=== PATIENT | male | born 1960 | race Caucasian/White ===

== ENCOUNTER → 2018-05-29 10:09 | Outpatient (CLI) | payer OTHER, SELFPAY ==
[2018-05-29 12:44] LABS: Anion Gap 7 (5-15); BUN 16 mg/dL (7-18); BUN/Creat Ratio 14.5 RATIO (10-20); Calcium,Total 8.9 mg/dL (8.5-10.1); Chloride 107 mmol/L (98-107); Cholesterol 193 mg/dL (200); EST Glomerular Filtration Rate 73 mL/min (>60); Est Glom Filt Rate - Afr Amer 89 mL/min (>60); Glucose 90 mg/dL (74-106); High Density Lipoprotein 35 mg/dL; Potassium 4.4 mmol/L (3.5-5.1); Sodium Level 140 mmol/L (136-145); Triglycerides 154 mg/dL; Very Low Density Lipoprotein 31 mg/dL (5-40)
--- OUTSIDE RECORDS SUMMARY | 2018-07-22 15:03 | XMS RPT_ITS ---
:1960 Author Organization [facility] Care Team Providers Name Role Phone Juan Doyle Attending Unavailable Juan Doyle Primary Care Unavailable PROBLEMS PROBLEMS No Problem Records FoundPROCEDURES PROCEDURES No Procedure Records FoundRESULTS RESULTS BASIC METABOLIC Collected: 05/29/2018 Status: F Source: [place] PROFILE (BMP) 10:11 AM [facility] REPOSITORY TYPE CODE TESTS RESULT OUT OF RANGE REFERENCE UNITS LAB L501.0100 74-106 mg/dL Normal GLU 90 Result Comment: Please note revised GLUCOSE reference range effective 2017. LAB L501.1000 7-18 mg/dL Normal BUN 16 LAB L501.1100 0.70-1.30 mg/dL Normal CREAT,SERUM 1.10 Result Comment: The validity of the calculated GFR AND GFRAA in patients over 70 years has not been determined. Clinical correlation is essential. LAB L501.1110 >60 mL/min Normal EST GFR 73 Result Comment: Non- GFR Calc LAB L501.1115 >60 mL/min Normal EST GFR - AA 89 Result Comment: GFR Calc LAB L501.1300 10-20 RATIO Normal BUN/CRE 14.5 LAB L501.2200 8.5-10.1 mg/dL CA Normal 8.9 LAB L501.5300 136-145 mmol/L NA Normal 140 LAB L501.5600 3.5-5.1 mmol/L K Normal 4.4 LAB L501.5900 98-107 mmol/L CL Normal 107 LAB L501.6100 21.0-32.0 mmol/L Normal CO2 26.0 LAB L501.6200 5-15 Normal GAP 7 Performed By: #### L500.2500, L500.4100 #### [facility] [address] [place], [address] LIPID PROFILE Collected: 05/29/2018 Status: F Source: [place] 10:11 AM [facility] REPOSITORY TYPE CODE TESTS RESULT OUT OF RANGE REFERENCE UNITS LAB L501.4900 200 mg/dL Normal CHOL 193 Result Comment: <200 mg/dL Desirable 200-240 mg/dL Borderline >240 mg/dL High Risk LAB L501.5000 mg/dL Normal TRIG 154 Result Comment: The drugs N-Acetylcysteine and Metamizole may falsely depress this assay. Serum Triglycerides Reference Interval Normal <150 mg/dL Borderline high 150 - 199 mg/dL High 200 - 499 mg/dL Very High > or = 500 mg/dL LAB L501.6400 mg/dL Low HDL 35 Result Comment: The drugs N-Acetylcysteine and Metamizole may falsely depress this assay. Reference Range HDL <40 mg/dL Low HDL Cholesterol HDL >or= 60 mg/dL High HDL Cholesterol LAB L501.6500 0-130 mg/dL Normal LDL 127 LAB L501.6600 5-40 mg/dL Normal VLDL 31 Performed By: #### L500.2500, L500.4100 #### [facility] [address] [place], [address] ALLERGIES ALLERGIES No Allergies Records FoundENCOUNTERS ENCOUNTERS ADMIT/DISCHARGE ACCOUNT ADMITTING ENCOUNTER LOCATION SOURCE NUMBER CLASS 05/29/2018 [id number] Ambulatory [facility] 1 [facility] ing:MFPLAB Repository PAYERS PAYERS ENCOUNTER GUARANTOR PAYER SUBSCRIBER SOURCE 05/29/2018 Jason Michele Primary Jason Andrew [id number] Insurance:[facility] ChapmanDOB: [facility] [id number] Number: Repository [id number]: [phone] [phone] () Date:[id number], [place] [address]QZ: 05/29/2018 [facility]LF [facility]Y [facility] Number: Effective Repository Date:2018-05-29
== END ==
PROVIDERS: Family Provider Family Medicine; PCP Family Medicine; Visit Provider Family Medicine
DX: E78.00 Pure hypercholesterolemia, unspecified (principal); N20.9 Urinary calculus, unspecified
CPT/HCPCS: 36415; 80048; 80061

== ENCOUNTER 2018-08-30 23:43 | Emergency (ER) | payer OTHER, SELFPAY ==
[2018-08-30 23:44] VITALS: BP 144/74; PULSE 78; RESP 18; TEMP 36.8; O2SAT 100; BMI 24.3
--- NOTE | 2018-08-31 00:04 | ED.DCSUM_ITS ---
- ER Visit Summary Date of Service: 08/31/18 Chief Complaint: [] Kidney stone pain History of Present Illness: The patient is a 58 M thinks he had another kidney stone that started an hour ago suddenly he developed some sharp and dull pain in his right flank associated with nausea. Current severity is resolved. It was pretty significant when it came on. He has had multiple kidney stones in the past. He is always passed them all. He does not have a urologist. Not noticed any blood in his urine. No other symptoms. Physical Examination: [] Vital signs reviewed General: Well-nourished well-developed Head: Normocephalic atraumatic Eyes: Pupils equal round and reactive to light extraocular movements intact ENT: TMs clear no hemotympanum no trauma Neck: Nontender full range of motion Cardiovascular: Regular rate rhythm no murmurs normal S1-S2 Respiratory: No distress clear to auscultation bilaterally chest nontender Abdomen: Soft nontender nondistended normal bowel sounds no masses Back: Nontender no CVA tenderness Extremities: Nontender active range of motion ?4 extremities no trauma Skin: Normal color no trauma Neuro alert oriented cranial nerves II through XII intact normal strength sensation reflexes Test Results: [] Emergency Department Course and Treatment: [] Monitored for almost an hour. Pain never returned. At this time I think he passed this kidney stone. We will follow-up as an outpatient Treatment Plan: [] Disposition: [] Impression: [] Right-sided kidney stone This note was generated with [employer]raphene[employer] dictation software. It may contain incorrect words, spelling, and punctuation that were not noted in review of the chart prior to signing ED Disposition - Plan for ED Patient: Referrals: Juan Doyle MD [Primary Care Provider] -
--- NOTE | 2018-08-31 00:44 | ED.DEP ---
ED Disposition - Plan for ED Patient: Disposition: Home or Assisted Living Instructions: ED Stone Renal Passed Referrals: Juan Doyle MD [Primary Care Provider] - Al Nunez MD [STAFF PHYSICIAN] -
[2018-08-31 00:54] VITALS: BP 136/70; PULSE 75; RESP 16; O2SAT 96
== END 2018-08-31 00:54 | disposition home or self-care (01) ==
PROVIDERS: Emergency Provider Emergency Medicine; Family Provider Family Medicine; PCP Family Medicine
DX: N20.0 Calculus of kidney (principal); Z87.442 Personal history of urinary calculi
CPT/HCPCS: 99282

== ENCOUNTER → 2019-05-31 10:20 | Outpatient (CLI) | payer OTHER, SELFPAY ==
[2019-05-31 12:44] LABS: PSA,Total - Annual Screen 0.76 ng/mL (0.00-4.00)
== END ==
PROVIDERS: Family Provider Family Medicine; PCP Family Medicine; Referring Provider Family Medicine; Visit Provider Family Medicine
DX: N40.0 Benign prostatic hyperplasia without lower urinary tract symptoms (principal)
CPT/HCPCS: 36415; 84153; G0103

== ENCOUNTER → 2020-06-05 09:29 | Outpatient (CLI) | payer OTHER, SELFPAY ==
[2020-06-05 11:27] LABS: Anion Gap 4 (5-15); BUN 18 mg/dL (7-18); BUN/Creat Ratio 17.8 RATIO (10-20); Calcium,Total 8.9 mg/dL (8.5-10.1); Chloride 106 mmol/L (98-107); Cholesterol 172 mg/dL (200); Creatinine, Serum 1.01 mg/dL (0.70-1.30); EST Glomerular Filtration Rate 80 mL/min (>60); Est Glom Filt Rate - Afr Amer 97 mL/min (>60); Glucose 81 mg/dL (74-106); High Density Lipoprotein 32 mg/dL; PSA,Total - Annual Screen 1.29 ng/mL (0.00-4.00); Potassium 3.9 mmol/L (3.5-5.1); Sodium Level 140 mmol/L (136-145); Triglycerides 199 mg/dL; Very Low Density Lipoprotein 40 mg/dL (5-40)
== END ==
PROVIDERS: PCP Family Medicine; Referring Provider Family Medicine; Visit Provider Family Medicine
DX: Z13.220 Encounter for screening for lipoid disorders (principal); Z13.1 Encounter for screening for diabetes mellitus; N40.0 Benign prostatic hyperplasia without lower urinary tract symptoms
CPT/HCPCS: 36415; 80048; 80061; 84153; G0103

== ENCOUNTER → 2021-06-08 09:36 | Outpatient (CLI) | payer OTHER, SELFPAY ==
[2021-06-08 13:00] LABS: ALB/GLOB Ratio 1.2 RATIO (0.9-2.4); AST(SGOT) 36 U/L (15-37); Alanine Aminotransfer ALT/SGPT 54 U/L (16-61); Albumin, Serum 4.2 g/dL (3.2-5.0); Alkaline Phosphatase 84 U/L (45-117); Anion Gap 5 (5-15); BUN 17 mg/dL (7-18); BUN/Creat Ratio 15.3 RATIO (10-20); Calcium,Total 9.4 mg/dL (8.5-10.1); Chloride 107 mmol/L (98-107); Cholesterol 164 mg/dL (200); Creatinine, Serum 1.11 mg/dL (0.70-1.30); EST Glomerular Filtration Rate 72 mL/min (>60); Est Glom Filt Rate - Afr Amer 87 mL/min (>60); Globulin 3.4 g/dL (2.2-4.2); Glucose 86 mg/dL (74-106); High Density Lipoprotein 35 mg/dL; PSA,Total - Annual Screen 0.78 ng/mL (0.00-4.00); Potassium 4.9 mmol/L (3.5-5.1); Protein, Total 7.6 g/dL (6.4-8.2); Sodium Level 139 mmol/L (136-145); Triglycerides 130 mg/dL; Very Low Density Lipoprotein 26 mg/dL (5-40)
== END ==
PROVIDERS: PCP Family Medicine; Visit Provider Family Medicine
DX: E78.00 Pure hypercholesterolemia, unspecified (principal); N40.0 Benign prostatic hyperplasia without lower urinary tract symptoms
CPT/HCPCS: 36415; 80053; 80061; 84153; G0103

== ENCOUNTER 2021-11-19 07:52 | Day surgery (SDC) | payer OTHER, SELFPAY ==
[2021-11-19] VITALS (7 sets, daily range): BP systolic 119–153; BP diastolic 66–89; PULSE 46–72; RESP 15–18; TEMP 36.5–36.6; O2SAT 96–100; BMI 24.7
--- NOTE | 2021-11-19 08:04 | EKG12_ITS ---
Test Reason : PREOP Blood Pressure : / mmHG Vent. Rate : 068 BPM Atrial Rate : 068 BPM P-R Int : 138 ms QRS Dur : 092 ms QT Int : 402 ms P-R-T Axes : 049 003 023 degrees QTc Int : 427 ms Normal sinus rhythm Normal ECG When compared with ECG of 08-MAY-2002 15:38, No significant change was found Confirmed by NATE POTTER, RUTHIE ([id number]), material expeditor LOIS ORTIZ ([id number]) on 11/25/2021 12:21:14 PM Referred By: Confirmed By:RUTHIE SULLIVAN MD
[2021-11-19] MEDS: Lactated Ringers 1,000 ML 15 ML IV (08:21)
--- NOTE | 2021-11-19 09:03 | HP.PCM_ITS ---
History and Physical Date of Admission: 11/19/21 Intake Vital Signs 11/06/21 09:53 Height 5 ft 7 in Weight: 162 lb BMI 25.3 BP 153/88 H Blood Pressure Location Rt brachial Position Sitting Respiration 18 Pulse 78 Pulse Source Monitor Temp 97.4 F L Temp Source Temporal Pulse Oximetry (%) 99 Oxygen Delivery Method room air Intake Visit Reasons: Hernia Chief Complaint: Possible Hernia Accompanied by: Is patient in pain?: No Allergies No Known Allergies Allergy (Verified 11/06/21 09:54) Medications Tamsulosin Hcl 0.4 mg PO DAILY 08/31/18 [History Confirmed 11/06/21] finasteride 5 mg PO DAILY 08/31/18 [History Confirmed 11/06/21] cholecalciferol (vitamin D3) 125 mcg (5,000 unit) capsule 125 mcg PO DAILY 11/06 [History Confirmed 11/06/21] lactobacillus combination no.9 4 billion cell capsule 4,000 mmu cells PO DAILY 11/06/21 [History Confirmed 11/06/21] jdvcdnjo-[id number] 120 mcg-lutein 150 mcg-herb 50 mg chewable tablet tab PO 11/06/21 [History Confirmed 11/06/21] zinc gluconate 30 mg tablet 15 mg PO DAILY tab 11/06/21 [History Confirmed 11/06/21] PFSH Medical History (Updated 11/06/21 @ 09:49 by Cindi Ferrer) Right groin pain Surgical History (Updated 11/06/21 @ 09:50 by Cindi Ferrer) History of vasectomy History of wisdom tooth extraction Family History (Updated 11/06/21 @ 09:52 by Cindi Ferrer) Sister Asthma Breast cancer Mother Arthritis Hypertension Osteoporosis CVA (cerebral vascular accident) Father Cancer Throat cancer Heart disease CVA (cerebral vascular accident) Social History (Updated 11/06/21 @ 09:52 by Cindi Ferrer) Smoking Status: Never smoker alcohol intake: current substance use type: does not use HPI HPI HPI: YANDEL WINTERS, is a 61 M who presents to the office today for right groin pain. The patient reports that he started experiencing discomfort in the right groin back in May and then since then it has grown and become a bulge and is still uncomfortable. He is able to push the bulge back in. Occurs only in the right side and he is having no discomfort in the left. He describes no nausea vomiting or fevers or chills. ROS General General: No weight change, appetite, fatigue, colon cancer, breast cancer or weakness HEENT HEENT: No difficulty swallowing, eye injury, eye surgery, swollen glands or hoarseness Endo Endocrine: No thyroid disease, diabetes mellitus, thyroid cancer, Hair loss, heat intolerance or cold intolerance Skin Skin: No rash or changing moles Breast Breast: No left breast lump, right breast lump, nipple discharge, breast pain, abnormal mammogram, abnormal US or breast enlargement Musc Musculoskeletal: No back problems, arthritis, rheumatoid arthritis, gout or joint pain Cardio Cardiovascular: No murmur, pacemaker, heart disease, atrial fibrillation, high blood pressure, heart attack, heart stent, palpitations, shortness of breat with exertion or chest pain Psych Psychiatric: No depression, anxiety or hearing voices Resp Respiratory: No shortness of breath, No sleep apnea, No cough, No COPD, No asthma, No emphysema and No wheezing Gastro Gastrointestinal: Yes abdominal pain, No nausea or vomiting, No diarrhea, No constipation, No blood in stool, No acid reflux, No hemorrhoids, No ulcers, No gallbladder problem and No black,tarry stools Chetan Hematologic: No blood thinners, No blood disorders, No bleeding, No anemia and No blood clots Neuro Neurologic: No system reviewed and no additional complaints, except as documented, No as per HPI, No abnormal gait, No abnormal hearing, No abnormal m ovements, No abnormal speech, No behavioral changes, No burning sensations, No confusion, No convulsions, No disequilibrium, No dizziness, No localized weakness, No frequent falls, No headache(s), No lack of coordination, No loss of vision, No memory loss, No numbness, No other visual disturbances, No radicular pain, No restless legs, No sensory deficit, No syncope, No tingling, No tremor(s), No weakness and No other Exam Const General: cooperative Orientation: alert and oriented x3 HENMT Head: normal to inspection Neck Neck: normal visual inspection and full ROM Chest Chest palpation & inspection: normal inspection of the chest Resp Effort & Inspection: normal respiratory effort Auscultation: clear to auscultation bilaterally Cardio Rate: regular rate Rhythm: regular rhythm GI Inspection: non-distended Palpation: soft, hernia indirect inguinal on the right and nontender Skin General: no rashes or lesions noted Neuro General: patient alert and patient oriented x3 Extrem General: full ROM Psych Appearance: grossly normal Mental Status: mental status grossly normal Assessment and Plan Assessment and Plan (1) Hernia: Plan - Dr. Gee Bullock MD: Patient has a right inguinal hernia which is reducible. I discussed robotic assisted laparoscopic right inguinal hernia repair with mesh. I discussed the risks including wound to bleeding, infection, injury to bowel or bladder or blood supply to the testicle. Patient understands the risks and is willing to proceed. I discussed mesh placement in detail as well as postoperative care and restrictions. I also discussed contralateral repair if a hernia is starting on the left and he would like me to repair it if it is present. Gee Bullock MD Pager: [facility] [address] [place] [address], [address] [place] [address] Office: I have re-examined the patient. There are no clinical changes since date of exam.
[2021-11-19] MEDS: Cefazolin 2 GM in 0.9% Normal Saline 100 ML IV (09:17)
--- NOTE | 2021-11-19 10:24 | PCM.OPRPT ---
Problems Associated Problem List Diagnoses (1) Right inguinal hernia: Report of Operation Date of Procedure: 11/19/21 Pre-Operative Diagnosis: Right inguinal hernia Post-Operative Diagnosis: Right inguinal hernia Surgery/Procedure Performed:: Robotic assisted laparoscopic right inguinal hernia repair with mesh Description of Procedure: Patient was brought back to the operating room and general anesthesia was induced. The abdomen was prepped and draped in usual sterile fashion. A midline incision was made superior the umbilicus and the fascia was elevated and a Veress needle was placed into the abdomen and a drop test was performed. Next the abdomen was insufflated to 15 mmHg and the Veress needle was removed. A camera port was placed. The camera was placed and the abdomen was inspected and there were no injuries from entry. Under direct visualization a port was placed in the right lateral abdomen and left lateral abdomen. Next the patient was placed in Trendelenburg and the robot was docked. In the right inguinal region an incision was made in the peritoneum using electrocautery scissors and deepened down to the hernia sac. The hernia sac was dissected free and reduced. Next ProGrip mesh was unfolded in the right groin completely covering the hernia defect. The patient did have a small direct as well as an indirect defect. Next the peritoneum was reapproximated using a running 3-0V lock suture. There were 2 small holes in the peritoneum which were closed with 3-0 Vicryl's. At the end of the procedure the mesh completely was covered by peritoneum. Next the robot was undocked and the ports were removed. The abdomen was allowed to desufflate. The incisions were injected with local anesthetic and closed with interrupted 4-0 Monocryl suture and Steri-Strips and bandages. The scrotum was checked in the end of the case and contain both testicles. The patient was awoken taken to PACU in stable condition. Grafts/Implants Used: ProGrip mesh in the right inguinal region Admit VTE Documentation VTE Mechan Device Prophylaxis: SCD's
--- NOTE | 2021-11-19 10:27 | EX.PCM.DISCH ---
Discharge Instructions Procedure Hernia Diet Discharge Diet: Light diet - advance as tolerated Activity Discharge Activity: May Not Drive (for 2-3 days or while taking narcotic pain meds.) and May Shower (with the bandage in place 1-2 days after surgery.) Lifting Restrictions: 20 pounds for 4 weeks. Additional Activity Instructions:: Climbing stairs is fine, walking is encouraged. Sitting in bed may be uncomfortable. Sitting up using your lateral muscles (sitting up sideways) is usually more comfortable. Do not drive, work heavy equipment of sign legal documents for 24 hours. If your hernia repair was an inguinal repair, you may have scrotal swelling, an ice pack and/or athletic support can provide more comfort. Pain medications may cause nausea, you should typically eat light foods as you take your pain medications. Pain medications may also cause constipation. If you have difficulty with this, discuss with your doctor. Dressing / Incision Call your doctor if your incision/area has: Continuous Slow Oozing, Sudden Increased Bleeding, Increased Pain/ Swelling, Increased Redness and Foul Smelling Discharge Call your doctor if you observe: Fever of 101 or Higher Suture Line Care: Avoid Pulling/Pushing and Avoid Pinching/Bending Remove Dressing in: 2 days (Remove clear bandages in 2 days, remove Steri-Strips in 7 to 10 days.) Cleanse incision/area with: Soap & Water Follow Up Care Please Follow Up With: Gee Bullock MD When: Please call to schedule 2 week follow up appointment. [phone] Test Results: Test results from this visit will be discussed in further detail at your follow-up appointment, if applicable. Discharge Plan Admission Attending Provider: Gee Bullock Primary Care Provider: Judson Hayes Discharge Orders/Prescriptions Prescriptions: New oxycodone-acetaminophen [Percocet] 5-325 mg tablet 1 tab PO Q6H PRN (Reason: pain) 5 Days Qty: 10 RF: 0 No Action cholecalciferol (vitamin D3) 125 mcg (5,000 unit) capsule 125 mcg PO DAILY RF: 0 Alive Men's 50 Plus Multivit 120 mcg-150 mcg -50 mg tablet,chewable 1 tab PO DAILY RF: 0 zinc gluconate 30 mg tablet 15 mg PO DAILY RF: 0 Adult 50 Plus Probiotic 4 billion cell capsule 4,000 mmu cells PO DAILY RF: 0 finasteride 5 MG tablet 5 mg PO DAILY RF: 0 Tamsulosin Hcl 0.4 MG capsule 0.4 mg PO QHS RF: 0 Referrals / Follow Up: Judson Hayes MD [Primary Care Provider] - Disposition Disposition (needs filled in before D/C Order can be placed): Home, Self Care
[2021-11-19] MEDS: Bupivacaine Mpf 0.5% 30 ML VIAL (10:30)
[2021-11-19] MEDS: oxyCODONE 5 MG Tablet PO (11:46)
[2021-11-19] MEDS: Acetaminophen 325 MG Tablet PO (11:50)
== END 2021-11-19 12:20 | disposition home or self-care (01) ==
LOC: SDC 07:52 → AC 07:54
PROVIDERS: PCP Family Medicine; Visit Provider Surgery
PROC: (CPT 49650; principal; 2021-11-19 09:15)
DX: K40.90 Unilateral inguinal hernia, without obstruction or gangrene, not specified as recurrent (principal); N42.9 Disorder of prostate, unspecified; Z98.52 Vasectomy status
CPT/HCPCS: 49650; 00840; 93005; J7120; J2405

== ENCOUNTER → 2022-05-04 | Outpatient (CLI) | payer OTHER, SELFPAY ==
[2022-05-04 12:42] LABS: Anion Gap 7 (5-15); BUN 19 mg/dL (7-18); BUN/Creat Ratio 18.6 RATIO (10-20); Calcium,Total 9.2 mg/dL (8.5-10.1); Chloride 106 mmol/L (98-107); Cholesterol 181 mg/dL (200); Creatinine, Serum 1.02 mg/dL (0.70-1.30); EST Glomerular Filtration Rate 79 mL/min (>60); Est Glom Filt Rate - Afr Amer 95 mL/min (>60); Glucose 86 mg/dL (74-106); High Density Lipoprotein 38 mg/dL; PSA,Total - Annual Screen 0.88 ng/mL (0.00-4.00); Potassium 4.5 mmol/L (3.5-5.1); Sodium Level 139 mmol/L (136-145); Triglycerides 154 mg/dL; Very Low Density Lipoprotein 31 mg/dL (5-40)
== END | disposition home or self-care (01) ==
LOC: MFPLAB 09:35
PROVIDERS: PCP Family Medicine; Referring Provider Family Medicine; Visit Provider Family Medicine
DX: N40.0 Benign prostatic hyperplasia without lower urinary tract symptoms (principal); E78.00 Pure hypercholesterolemia, unspecified; Z13.1 Encounter for screening for diabetes mellitus
CPT/HCPCS: 36415; 80048; 80061; 84153; G0103

== ENCOUNTER → 2023-04-11 | Outpatient (CLI) | payer OTHER, SELFPAY ==
[2023-04-11 12:19] LABS: Absolute Lymphocyte Count 1.03 X10^3/uL (0.83-4.51); Absolute Neutrophil Count 2.5 X10^3/uL (2.0-7.7); Basophil# 0.02 X10^3/uL; Basophil% 0.5 % (0-1); Eosinophil# 0.09 X10^3/uL; Eosinophils% 2.2 % (0-5); Hematocrit 51.6 % (40-54); Hemoglobin 16.8 g/dL (13.0-16.5); Lymphocyte # 1.03 X10^3/ul (0.83-4.51); Lymphocyte % 24.7 % (19-41); Mean Corp Hgb Conc 32.6 g/dL (32-36); Mean Corpuscular Hgb 30.4 pg (27.0-32.0); Mean Corpuscular Volume 93.3 fL (80-94); Mean Platelet Vol. 9.2 fl (6.2-12.0); Monocyte# 0.49 X10^3/uL; Monocyte% 11.8 % (0-10); NRBC Flagged by Analyzer 0 % (0-5); Neutrophil # 2.53 X10^3/uL (2.7-7.7); Neutrophil % 60.6 % (47-70); Platelet Count 297 K/mm3 (150-450); Red Blood Count 5.53 M/mm3 (4.6-6.2); White Blood Count 4.2 K/mm3 (4.4-11.0)
[2023-04-11 13:01] LABS: ALB/GLOB Ratio 1.1 RATIO (0.9-2.4); AST(SGOT) 23 U/L (15-37); Alanine Aminotransfer ALT/SGPT 36 U/L (16-61); Albumin, Serum 3.9 g/dL (3.2-5.0); Alkaline Phosphatase 76 U/L (45-117); Anion Gap 5 (5-15); BUN 16 mg/dL (7-18); Chloride 106 mmol/L (98-107); Cholesterol 158 mg/dL (200); Creatinine, Serum 1.07 mg/dL (0.70-1.30); EST Glomerular Filtration Rate 74 mL/min (>60); Est Glom Filt Rate - Afr Amer 90 mL/min (>60); Globulin 3.6 g/dL (2.2-4.2); Glucose 88 mg/dL (74-106); High Density Lipoprotein 30 mg/dL; PSA,Total - Annual Screen 0.93 ng/mL (0.00-4.00); Potassium 4.7 mmol/L (3.5-5.1); Protein, Total 7.5 g/dL (6.4-8.2); Sodium Level 139 mmol/L (136-145); T4 Free Direct 1.06 ng/dL (0.76-1.46); Thyroid Stim Hormone (TSH) 1.84 uIU/mL (0.358-3.74); Triglycerides 232 mg/dL; Very Low Density Lipoprotein 46 mg/dL (5-40)
== END | disposition home or self-care (01) ==
LOC: BFHLAB 10:05
PROVIDERS: PCP Family Medicine; Referring Provider Family Medicine; Visit Provider Family Medicine
DX: Z00.00 Encounter for general adult medical examination without abnormal findings (principal); Z12.5 Encounter for screening for malignant neoplasm of prostate; R63.4 Abnormal weight loss
CPT/HCPCS: 36415; 80053; 80061; 84153; 84439; 84443; 85025; G0103

== ENCOUNTER → 2023-04-29 | Outpatient (CLI) | payer OTHER, SELFPAY ==
--- NOTE | 2023-04-29 09:59 | MRI_ITS ---
STUDY: MRI ARTHROGRAM OF THE RIGHT SHOULDER REASON FOR EXAM: Male, 63 years old. Right shoulder pain. TECHNIQUE: 10 cc of dilute Clariscan contrast was injected into the right glenohumeral joint. MRI was obtained in all 3 orthogonal planes. In addition, a fat-suppressed T1-weighted was performed with the patient''s arm in the abduction external rotation (ABER) position. COMPARISON: Right shoulder radiographs dated 04/29/2023. FINDINGS: There is mild supraspinatus tendinosis without a full-thickness tear. Normal infraspinatus tendon. Normal subscapularis tendon. Normal teres minor tendon. Normal supraspinatus muscle. Normal infraspinatus muscle. Normal subscapularis muscle. Normal teres minor muscle. Normal glenohumeral articulation. Normal humeral head and visualized proximal humerus. Normal biceps labral complex. Normal intracapsular long biceps tendon. Normal rotator interval. There is linear signal in the superior glenoid labrum, oriented in the superolateral direction, extending posterior to the biceps-labral anchor (coronal T1 series 3 image 10), compatible with a small SLAP tear. There is hypertrophic acromioclavicular arthrosis, with inferior osteophyte formation, with minimal effacement of the supraspinatus myotendinous junction. There is a Type II morphology (curved), with a neutral orientation. There is a small amount of subacromial-subdeltoid bursal fluid. Normal visualized coracohumeral and coracoacromial ligaments. Normal quadrilateral space. Normal axillary space. Normal deltoid muscle. Normal trapezius muscle. MRI/Upper Ext Jt W/Contrast IMPRESSION: Mild supraspinatus tendinosis without a full-thickness rotator cuff tear. Small SLAP tear of the superior labrum. Hypertrophic acromioclavicular arthrosis, with inferior osteophyte formation, with minimal effacement of the supraspinatus myotendinous junction. Mild subacromial-subdeltoid bursitis. Electronically Signed: Benny Mckenna MD at 14:42 EDT ,
--- NOTE | 2023-04-29 10:00 | RAD_ITS ---
STUDY: X-RAY - RIGHT SHOULDER REASON FOR EXAM: Male, 63 years old. Post right shoulder arthrogram TECHNIQUE: 3 view(s) of the shoulder. COMPARISON: None. FINDINGS: Status post right intra-articular contrast injection for MRI. Normal glenohumeral articulation. Normal acromioclavicular joint. Normal acromion. Normal humeral head and visualized proximal humerus. The soft tissue structures are unremarkable. Normal visualized pulmonary apex. RAD/Shoulder min 2 Views IMPRESSION: Normal x-ray examination of the shoulder. Electronically Signed: Jeff Ibarra MD at 15:10 EDT ,
[2023-04-29] MEDS: Lidocaine 2% (5ml sdv) 5 ML VIAL.MPF INFILT (10:38)
--- NOTE | 2023-04-29 11:13 | PCM.OP.PRO ---
Procedure Report Date of Procedure: 04/29/23 Assessment & Plan Assessment/Plan (1) Right shoulder pain: QUALIFIERS: Chronicity: unspecified Qualified Code(s): M25.511 - Pain in right shoulder PLAN: PROCEDURE: Arthrogram-right shoulder ORDERING PROVIDER: Dr. Oquendo INDICATION: Male, 63 years old. Right shoulder pain. PROVIDER: Valerie Robbins APRN-[facility] CONSENT: The procedure as well as the benefits and possible complications including bleeding and infection were explained to the patient. Informed consent was obtained. TECHNIQUE: The patient was in the supine position. The overlying skin was prepped and draped in the usual sterile fashion. Following local anesthetic using 2% lidocaine and under direct fluoroscopic guidance, a 22-gauge spinal needle was placed into the right shoulder. 2 cc of Isovue 300 was injected for confirmation. Following this, 10 cc of MRI contrast was injected. All elements of maximal sterile barrier technique followed. Patient tolerated procedure well. IMPRESSION: Successful fluoroscopic guided right shoulder arthrogram. Procedures Radiology Radiology Xray Procedures: [id number] Arthrogram Shoulder
--- NOTE | 2023-04-29 11:24 | RAD_ITS ---
STUDY: X-RAY - ORBITS REASON FOR EXAM: Male, 63 years old. MRI CLEARANCE TECHNIQUE: 2 view(s) of the orbits were obtained. COMPARISON: None. FINDINGS: Normal bilateral orbits without a metallic orbital foreign body. Normal visualized facial bones. Normal paranasal sinuses. The soft tissue structures are unremarkable. RAD/Orbits for Foreign Body IMPRESSION: No demonstrated metallic orbital foreign body. The patient is cleared for an MRI examination. Electronically Signed: Jeff Ibarra MD at 12:35 EDT ,
== END | disposition home or self-care (01) ==
LOC: RAD 09:52
PROVIDERS: PCP Family Medicine; Referring Provider Family Medicine; Visit Provider Family Medicine
DX: M25.511 Pain in right shoulder (principal)
CPT/HCPCS: 23350; 70030; 73030; 73222; 77002; Q9967

== ENCOUNTER 2024-03-14 09:44 | Day surgery (SDC) | payer OTHER, SELFPAY ==
[2024-03-14] VITALS (8 sets, daily range): BP systolic 116–134; BP diastolic 79–93; PULSE 53–72; RESP 16; TEMP 36.2–36.3; O2SAT 96–98; BMI 22.6
--- NOTE | 2024-03-14 10:08 | PCM.HP.STD ---
HPI - General General Date of Admission: 03/14/24 Date of Service: 03/14/24 Chief Complaint: Screening colonoscopy HPI Narrative YANDEL WINTERS, is a 64 M who presents today for screening colonoscopy. He had a colonoscopy likely 12 years ago. He is not having any problems at this time. He has past medical history of BPH takes tamsulosin and finasteride at night. He is not having chest pain or shortness of breath. Denies any nausea vomit diarrhea. Overall is in very good health. [facility] Medical History (Updated 03/12/24 @ 14:16 by Elieser Weems) Wears glasses Personal history of colonic polyps SLAP lesion of right shoulder Impingement of right shoulder Loss of hearing Alcohol use Prostate disease History of renal disease Back pain Injury of head and neck Heartburn Non-smoker Shortness of breath on exertion Leg cramps History of pain when walking Hx of fracture of finger Right groin pain Home Medications ?Medication ?Instructions ?Recorded ?Last Taken ?Type finasteride 5 mg tablet 5 mg PO QHS 08/31/18 Unknown History cholecalciferol (vitamin D3) 125 125 mcg PO DAILY 11/06/21 Unknown History mcg (5,000 unit) capsule [id number] 120 mcg-lutein 1 tab PO DAILY 11/06/21 Unknown History 150 mcg-herb 50 mg chewable tablet (Alive Men's 50 Plus Multivitamin) zinc gluconate 30 mg tablet 15 mg PO DAILY 11/06/21 Unknown History tamsulosin 0.4 mg capsule 0.4 mg PO QHS 03/12/24 Unknown History Allergy/AdvReac Type Severity Reaction Status Date / Time No Known Allergies Allergy Verified 03/14/24 10:02 Family History Sister Asthma Breast cancer Mother Arthritis Hypertension Osteoporosis CVA (cerebral vascular accident) Father Cancer Throat cancer Heart disease CVA (cerebral vascular accident) Surgical History (Updated 03/12/24 @ 14:16 by Elieser Weems) Hx of LASIK History of robot-assisted repair of right inguinal hernia Hx of colonoscopy History of excision of mass History of vasectomy History of wisdom tooth extraction Social History (Updated 02/15/24 @ 09:31 by Maribel Verduzco) household members: spouse current occupational status: employed current occupation: [employer] Smoking Status: Never smoker alcohol intake: current substance use type: does not use ROS Review of Systems ROS Unobtainable: other Constitutional Constitutional: Denies fatigue, fever(s), poor appetite, weight gain or weight loss ENT HEENT: Denies mouth lesions Cardiovascular Cardiovascular: Denies abdominal bloating, abdominal edema or abdominal pain Respiratory/Chest Respiratory/Chest: Denies change in mental status, change in phlegm color, chest congestion or chest tightness Gastrointestinal Gastrointestinal: Denies belching, bloating, change in bowel habits, change in stool character, chewing difficulty, coffee ground emesis, constipation, cramping, diarrhea, dyspepsia, dysphagia, early satiety, excessive flatus, fecal incontinence, heartburn, hematemesis, hematochezia, hemorrhoids, loose stools, melena, nausea, odynophagia, rectal bleeding, tenesmus, vomiting or weight changes Genitourinary Genitourinary: Denies abdominal discomfort, burning urination or itching Musculoskeletal Musculoskeletal: Reports as per HPI; Denies muscle weakness or myalgias Integumentary Integumentary: Denies jaundice Neurologic Neurologic: Denies lack of coordination or weakness Psychiatric Psychiatric: Denies confusion, depression, memory loss, mood swings, paranoia or suicidal ideation Endocrine Endocrinology: Denies systems reviewed and no addt'l complaints, except as documented Hematologic/Lymphatic Hematologic/Lymphatic: Denies anemia, easy bleeding, easy bruising or lymphadenopathy Allergic/Immunologic Allergic/Immunologic: Denies systems reviewed and no addt'l complaints, except as documented Vital Signs Vital Signs Vital Signs: 03/14/24 10:03 03/14/24 10:03 Temperature 97.2 F L Temperature Source Temporal Pulse Rate 72 Respiratory Rate 16 Respiratory Pattern Normal Blood Pressure 134/93 H Blood Pressure Mean 106 Blood Pressure Source Monitor Blood Pressure Position Semi-Fowlers Blood Pressure Location Left Arm Pulse Ox 98 Oxygen Delivery Method Room Air Weight Weight: 149 lb Body Mass Index (BMI) 22.6 Physical Exam Const alert General Appearance: cooperative Orientation / Consciousness: oriented to person HEENT hearing grossly normal bilaterally Head and Scalp: normal to inspection Face and Sinus: face symmetric Nose: external nose normal Mouth: oral and palatal mucosa normal Eyes conjunctivae normal General Eye: normal appearance of both eyes Neck full ROM General: normal visual inspection Lymph Lymphatic: no lymphadenopathy noted Chest inspection of chest normal and palpation of chest normal Chest: symmetrical chest wall rise Resp normal respiratory effort Effort and Inspection: able to speak in complete sentences Cardio regular rate GI non-distended Percussion: normal to percussion Rectal Exam: deferred Neuro Speech: speech normal Gait (Neuro): normal gait Assessment & Plan Assessment/Plan (1) Encounter for screening for malignant neoplasm of colon: PLAN: Plan He was explained alternatives, risk and benefits including not withstanding bleeding, infection, sepsis, perforation, need for emergent surgery and . He will have an ASA of 3.
[2024-03-14] MEDS: Lactated Ringers 1,000 ML 15 ML IV (10:11)
--- NOTE | 2024-03-14 10:43 | PCM.PRE.AN2 ---
ASA Classification* ASA Classification ASA Classification: 2 Assessment & Plan Anesthesia* Anesthesia Assessment Anesthesia Assessment: Discussed sedation and/or anesthesia options, risks, benefits, and alternatives with patient/parents/legal guardian/POA. Questions invited. The patient/parents/legal guardian/POA seems to understand and agrees to proceed with anesthesia plan. Reviewed the physical assessment, medical history, allergy history and patient home medications list prior to surgery/procedure/anesthetic and documented any changes. Performed airway and anesthesia risk assessments. Anesthesia Type Anesthesia Type: MAC Anesthesia Focused Assessment* Temperature: 97.2 F Pulse Rate: 72 Blood Pressure: 134/93 Respiratory Rate: 16 Pulse Ox: 98 Airway Assessment Mouth opens: >3 cm Mallampati Score: II Focused Labs Anesthesia Preop lab: CBC WBC 4.2 K/mm3 (4.4-11.0) L 04/11/23 10:07 RBC 5.53 M/mm3 (4.6-6.2) 04/11/23 10:07 Hgb 16.8 g/dL (13.0-16.5) H 04/11/23 10:07 Hct 51.6 % (40-54) 04/11/23 10:07 Plt Count 297 K/mm3 (150-450) 04/11/23 10:07 CHEMISTRY Potassium 4.7 mmol/L (3.5-5.1) 04/11/23 10:07 Sodium 139 mmol/L (136-145) 04/11/23 10:07 BUN 16 mg/dL (7-18) 04/11/23 10:07 Creatinine 1.07 mg/dL (0.70-1.30) 04/11/23 10:07 Glucose 88 mg/dL (74-106) 04/11/23 10:07 TSH 1.84 uIU/mL (0.358-3.74) 04/11/23 10:07 COAG Pre-Assessment Diagnosis/Proposed Procedure Planned Operative Procedure(s): COLONOSCOPY Anesthesia History Anesthesia History - anesthesiologist and critical care: Anesthesia History - anesthesiologist and critical care Hx Hospitalization No 03/12/24 14:10 Any Problems With Anesthesia No 03/12/24 14:10 Cholinesterase deficiency No 03/12/24 14:10 You/Your Family Experience No 03/12/24 14:10 fever (hyperthermia) with Relationship Recent Exposure to Contagious No 03/14/24 10:03 Disease Does patient have nerve No 03/12/24 14:10 stimulator Patient instructed to have device shut off --Does patient have Pacemaker No 03/14/24 10:03 or ICD? When Was Last Pacemaker Check QUESTION #4 FULL TEXT: You/Your Family Experience fever (hyperthermia) with Anesthesia Last Oral Intake Last Oral intake: Last Oral Intake NPO since 06:45 03/14/24 10:03 Meds taken in AM with sips of water? Meds patient instructed to take am of surgery PONV PONV - anesthesiologist and critical care: PONV - anesthesiologist and critical care Female No 03/12/24 14:10 HX of Motion Sickness No 03/12/24 14:10 HX of N/V After Surgery No 03/12/24 14:10 Non-Smoker Yes 03/12/24 14:10 Duration of Surgery greater No 03/12/24 14:10 than 60 minutes Number of Risk Factors 1 03/12/24 14:10 PONV Score Low Risk 03/12/24 14:10 Height & Weight Height & Weight: Anesthesia: Height & Weight Height 5 ft 8 in 03/14/24 10:03 Weight: 67.585 kg 03/14/24 10:03 Body Mass Index (BMI) 22.6 03/14/24 10:03 Respiratory Assessment Respiratory Assessment - anesthesiologist and critical care: Respiratory Tract Infection Hx - anesthesiologist and critical care Hx Respiratory Tract Infection No 03/12/24 14:10 STOP Sleep Apnea STOP Sleep Apnea - anesthesiologist and critical care: STOP Sleep Apnea - anesthesiologist and critical care Hx Hypertension No 03/12/24 14:10 Hx Sleep Apnea No 03/12/24 14:10 CPAP BIPAP Do you snore loudly (louder No 03/12/24 14:10 than talking or can be heard Do you often feel tired/ No 03/12/24 14:10 fatigued/ sleepy during daytime? Has anyone observed you stop No 03/12/24 14:10 breathing during sleep? STOP Results Negative 03/12/24 14:10 QUESTION #5 FULL TEXT : Do you snore loudly (louder than talking or can be heard through closed doors)? Tobacco Use History Tobacco Use History - anesthesiologist and critical care: Tobacco Use History - anesthesiologist and critical care Tobacco Use Smoking Status Never smoker 03/12/24 14:10 Hx Tobacco Use No 03/12/24 14:10 Years Smoking Packs Smoked per Day Smoking Cessation Date was within the last 15 years Hx Smoking Cessation Date Hx Smoking Cessation Counseling Hematologic Medial History Hematologic Hx - anesthesiologist and critical care: Hematologic Medical Hx - car pilot Hx of Blood Transfusion No 03/12/24 14:10 Hx of Transfusion in last 3 No 03/12/24 14:10 Months Date of Last Transfusion (if within last 3 months) Ever experience any problems No 03/12/24 14:10 with transfusion(s)? Specify any problems Hx of Preganancy in last 3 N/A 03/12/24 14:10 Months Nurse Filling Out Transfusion [email or web address] 03/12/24 14:10 & Questions: Date: 03/12/24 03/12/24 14:10 Time: 14:11 03/12/24 14:10 Patient unable to answer at this time (ie. confused, unrespo /Reproduction History /Reproductive History - anesthesiologist and critical care: /Reproductive Hx- anesthesiologist and critical care Hx Now Gestational Age (in weeks): EDC: Hx Hx Para Hx Section SAB No 11/12/21 08:07 Active Medications Active Medications: Current Medications Generic Name Dose Route Start Last Admin Trade Name Freq PRN Reason Stop Dose Admin Lactated Ringer's 1,000 mls @ 15 mls/hr 03/14/24 10:00 03/14/24 10:11 IV 15 mls/hr .Q48H BETH Administration PFSH Medical History Wears glasses Personal history of colonic polyps SLAP lesion of right shoulder Impingement of right shoulder Loss of hearing Alcohol use Prostate disease History of renal disease Back pain Injury of head and neck Heartburn Non-smoker Shortness of breath on exertion Leg cramps History of pain when walking Hx of fracture of finger Right groin pain Home Medications ?Medication ?Instructions ?Recorded ?Last Taken ?Type finasteride 5 mg tablet 5 mg PO QHS 08/31/18 Unknown History cholecalciferol (vitamin D3) 125 125 mcg PO DAILY 11/06/21 Unknown History mcg (5,000 unit) capsule [id number]-[id number] 120 mcg-lutein 1 tab PO DAILY 11/06/21 Unknown History 150 mcg-herb 50 mg chewable tablet (Alive Men's 50 Plus Multivitamin) zinc gluconate 30 mg tablet 15 mg PO DAILY 11/06/21 Unknown History tamsulosin 0.4 mg capsule 0.4 mg PO QHS 03/12/24 Unknown History Allergy/AdvReac Type Severity Reaction Status Date / Time No Known Allergies Allergy Verified 03/14/24 10:02 Family History Sister Asthma Breast cancer Mother Arthritis Hypertension Osteoporosis CVA (cerebral vascular accident) Father Cancer Throat cancer Heart disease CVA (cerebral vascular accident) Surgical History Hx of LASIK History of robot-assisted repair of right inguinal hernia Hx of colonoscopy History of excision of mass History of vasectomy History of wisdom tooth extraction Social History household members: spouse current occupational status: employed current occupation: [employer] Smoking Status: Never smoker alcohol intake: current substance use type: does not use Review of Systems (Anesthesia) ROS Narrative System reviewed and no additional complaints, except as documented.
--- NOTE | 2024-03-14 10:45 | COLBX_PTH ---
PATIENT: YANDEL WINTERS LOC: EN U#:[id number] AGE/SX: 64/M ROOM: RE03/14/[address]: Dr. Marvin Ambriz DO : 1960 BED: DIS: 03/14/2024 SPEC #: [id number] RECD: 03/14/24 12:42 STATUS: PASTORA ELLIS #: [id number] JERRY: 03/14/24 10:[address]: Marvin Ambriz DEPT: SURGICAL PATHOLOGY RECD BY: Roberto Carlos Julian ENTERED: 03/14/24 14:25 SP TYPE: COLON BX OTHR DR: Dr. Markos Oquendo DO Tissues: COLON BIOPSY Procedures: Surgery Specimen Level IV HEADER OPERATION: Colonoscopy with polypectomy, clip application PRE-OP DIAGNOSIS: Screening TISSUE SUBMITTED: Hepatic flexure polyp MICROSCOPIC DIAGNOSIS Hepatic flexure polyp, polypectomy: Tubular adenoma. 03/15/2024 MICROSCOPIC DESCRIPTION Slides are reviewed. GROSS DESCRIPTION Received in fixative is one container labeled with the patient's name and designated Hepatic flexure polyp. The specimen consists of a pink-red polyp measuring 1.5 x 1.0 x 0.6 cm. The presumed base is inked. The polyp is serially sectioned and submitted entirely in one cassette. 03/14/2024 TC:1 CPT:23481
--- NOTE | 2024-03-14 11:36 | OP.CCLET_ITS ---
03/14/2024 Markos Oquendo [address] [place] [address] Re : Colonoscopy procedure for Jason Mary Dear Dr. Oquendo This procedure was performed on Thursday, March 14, 2024. My impressions and recommendations are as follows: Impressions : - One 20 mm polyp at the hepatic flexure, removed with a hot snare. Resected and retrieved. Clip was placed. Clip spot checker: SADAR 3D. - Diverticulosis in the recto-sigmoid colon and in the sigmoid colon. - The examination was otherwise normal on direct and retroflexion views. Recommendations : - Discharge patient to home. - Resume previous diet. - Continue present medications. - Await pathology results. - Repeat colonoscopy in 5 years for surveillance. My findings are described in the full procedure note, which is enclosed. If I can be of further assistance, please feel free to contact me at . Sincerely, Marvin Friend, 03/14/2024 11:35:19 AM This report has been signed electronically.
--- NOTE | 2024-03-14 11:36 | OP.COLON_ITS ---
Patient Name: Jason Mary Procedure Date: 03/14/2024 11:05 AM Date of : 1960 Age: 64 Procedure: Colonoscopy Indications: Screening for colorectal malignant neoplasm Providers: Marvin Ambriz DO Referring MD: Marvin Ambriz DO Medicines: Monitored Anesthesia Care Patient Profile: This is a 64 year old male. Refer to note in patient chart for documentation of history and physical. Last Colonoscopy: more than 10 years ago. Complications: No immediate complications. Procedure: Pre-Anesthesia Assessment: - Prior to the procedure, a History and Physical was performed, and patient medications and allergies were reviewed. The patient is competent. The risks and benefits of the procedure and the sedation options and risks were discussed with the patient. All questions were answered and informed consent was obtained. Patient identification and proposed procedure were verified in the pre-procedure area. Mental Status Examination: alert and oriented. Airway Examination: normal oropharyngeal airway and neck mobility. Respiratory Examination: clear to auscultation. CV Examination: normal. Prophylactic Antibiotics: The patient does not require prophylactic antibiotics. Prior Anticoagulants: The patient has taken no anticoagulant or antiplatelet agents except for NSAID medication. ASA Grade Assessment: II - A patient with mild systemic disease. After reviewing the risks and benefits, the patient was deemed in satisfactory condition to undergo the procedure. The anesthesia plan was to use monitored anesthesia care (MAC). Immediately prior to administration of medications, the patient was re-assessed for adequacy to receive sedatives. The heart rate, respiratory rate, oxygen saturations, blood pressure, adequacy of pulmonary ventilation, and response to care were monitored throughout the procedure. The physical status of the patient was re-assessed after the procedure. After I obtained informed consent, the scope was passed under direct vision. Throughout the procedure, the patient's blood pressure, pulse, and oxygen saturations were monitored continuously. The Colonoscope was introduced through the anus and advanced to the cecum, identified by the appendiceal orifice, ileocecal valve and palpation. The colonoscopy was performed without difficulty. The patient tolerated the procedure well. The quality of the bowel preparation was adequate. The ileocecal valve, appendiceal orifice, and rectum were photographed. Scope In: 11:16:52 AM Scope Withdrawal Time 0 hours 11 minutes 3 seconds Scope Out: 11:31:05 AM Total Procedure Duration Time 0 hours 14 minutes 13 seconds Findings: The perianal and digital rectal examinations were normal. A 20 mm polyp was found in the hepatic flexure. The polyp was semi-pedunculated. The polyp was removed with a hot snare. Resection and retrieval were complete. Verification of patient identification for the specimen was done. Estimated blood loss was minimal. To prevent bleeding post-intervention, one hemostatic clip was successfully placed. Clip ore storage drier: Snappy Chow. There was no bleeding at the end of the procedure. A few small and large-mouthed diverticula were found in the recto-sigmoid colon and sigmoid colon. The exam was otherwise without abnormality on direct and retroflexion views. Impression: - One 20 mm polyp at the hepatic flexure, removed with a hot snare. Resected and retrieved. Clip was placed. Clip ore storage drier: Snappy Chow. - Diverticulosis in the recto-sigmoid colon and in the sigmoid colon. - The examination was otherwise normal on direct and retroflexion views. Recommendation: - Discharge patient to home. - Resume previous diet. - Continue present medications. - Await pathology results. - Repeat colonoscopy in 5 years for surveillance. Procedure Code(s): --- Professional --- 32075, Colonoscopy, flexible; with removal of tumor(s), polyp(s), or other lesion(s) by snare technique CPT copyright 2021 [employer]. All rights reserved. The codes documented in this report are preliminary and upon hcc coders review may be revised to meet current compliance requirements. Marvin Ambriz DO 03/14/2024 11:35:19 AM This report has been signed electronically. Number of Addenda: 0 Note Initiated On: 03/14/2024 11:05 AM
--- NOTE | 2024-03-14 11:41 | PCM.POST.ANE ---
Anesthesia: Postop Eval I Current Vital Signs Temperature: 97.1 F Pulse Rate: 61 Blood Pressure: 118/79 Respiratory Rate: 16 Pulse Ox: 98 Oxygen Delivery Method: Room Air Assessment Airway patent: Yes Spontaneous unlabored respirations: Yes Mental status: Asleep nausea: No Vomiting: No Anesthesia Complication: No Fluid Hydration Crystalloid volume administer (ml): 600 Total IV fluid infused: 600 Progress Note Anesthesia document: Postop Eval 1 completed: Yes
--- NOTE | 2024-03-14 13:06 | PCM.POSTANE2 ---
Anesthesia Postop Eval I Sum Postop Eval Completion status Anesthesia document: Postop Eval 1 completed: Yes Anesthesia Postop Eval I Summary Anesthesia Postop Eval I Summary: Anesthesia Postop Eval I: Assessment Summary Airway patent Yes 03/14/24 11:42 [email or web address] Spontaneous unlabored Yes 03/14/24 11:42 [email or web address] respirations Mental status Asleep 03/14/24 11:42 [email or web address] nausea No 03/14/24 11:42 [email or web address] Vomiting No 03/14/24 11:42 [email or web address] Anesthesia Postop Eval I: Fluid Summary Crystalloid volume administer 600 03/14/24 11:42 [email or web address] (ml) Colloids volume administered ( ml) Blood Product volume administered (ml) Total IV fluid infused 600 03/14/24 11:42 [email or web address] Anesthesia Postop Eval I: Summary Notes Anesthesia Complication No 03/14/24 11:42 [email or web address] Anesthesia Complication Comment: Post-operative progress note Anesthesia: Postop Eval II Evaluation Mental status: Awake Pain Level: 0 nausea: No Vomiting: No
== END 2024-03-14 12:20 | disposition home or self-care (01) ==
LOC: EN 09:45 → AC 09:48
PROVIDERS: PCP Family Medicine; Referring Provider Internal Medicine Gastroenterology; Visit Provider Internal Medicine Gastroenterology
PROC: 0DJD8ZZ Inspection of Lower Intestinal Tract, Via Natural or Artificial Opening Endoscopic (ICD-10-PCS; CPT 45378; principal; 2024-03-14 10:40)
DX: Z12.11 Encounter for screening for malignant neoplasm of colon (principal); K57.30 Diverticulosis of large intestine without perforation or abscess without bleeding; Z86.010 Personal history of colon polyps; N40.0 Benign prostatic hyperplasia without lower urinary tract symptoms; Z79.899 Other long term (current) drug therapy; D12.3 Benign neoplasm of transverse colon
CPT/HCPCS: 45385; 88305; J7120; J2405

== ENCOUNTER → 2024-04-12 | Outpatient (CLI) | payer OTHER, SELFPAY ==
[2024-04-12 12:24] LABS: Absolute Lymphocyte Count 1.17 X10^3/uL (0.83-4.51); Absolute Neutrophil Count 3.8 X10^3/uL (2.0-7.7); Basophil# 0.04 X10^3/uL; Basophil% 0.7 % (0-1); Eosinophil# 0.22 X10^3/uL; Eosinophils% 3.7 % (0-5); Hematocrit 48.3 % (40-54); Hemoglobin 16.6 g/dL (13.0-16.5); Lymphocyte # 1.17 X10^3/ul (0.83-4.51); Lymphocyte % 19.7 % (19-41); Mean Corp Hgb Conc 34.4 g/dL (32-36); Mean Corpuscular Hgb 31.4 pg (27.0-32.0); Mean Corpuscular Volume 91.5 fL (80-94); Mean Platelet Vol. 9.3 fl (6.2-12.0); Monocyte# 0.73 X10^3/uL; Monocyte% 12.3 % (0-10); NRBC Flagged by Analyzer 0 % (0-5); Neutrophil # 3.75 X10^3/uL (2.7-7.7); Neutrophil % 63.3 % (47-70); Platelet Count 289 K/mm3 (150-450); RBC Distribution Width CV 13.3 % (11.6-14.6); RBC Distribution Width SD 44.8 fl (35.1-43.9); Red Blood Count 5.28 M/mm3 (4.6-6.2); White Blood Count 5.9 K/mm3 (4.4-11.0)
[2024-04-12 12:55] LABS: ALB/GLOB Ratio 1.3 RATIO (0.9-2.4); AST(SGOT) 19 U/L (15-37); Alanine Aminotransfer ALT/SGPT 34 U/L (16-61); Albumin, Serum 3.9 g/dL (3.2-5.0); Alkaline Phosphatase 85 U/L (45-117); Anion Gap 4 (5-15); BUN 23 mg/dL (7-18); BUN/Creat Ratio 21.1 RATIO (10-20); Calcium,Total 9.2 mg/dL (8.5-10.1); Chloride 110 mmol/L (98-107); Cholesterol 163 mg/dL (200); Creatinine, Serum 1.09 mg/dL (0.70-1.30); EST Glomerular Filtration Rate 73 mL/min (>60); Est Glom Filt Rate - Afr Amer 88 mL/min (>60); Globulin 3.1 g/dL (2.2-4.2); Glucose 72 mg/dL (74-106); High Density Lipoprotein 41 mg/dL; PSA,Total - Annual Screen 0.72 ng/mL (0.00-4.00); Sodium Level 141 mmol/L (136-145); Triglycerides 170 mg/dL; Very Low Density Lipoprotein 34 mg/dL (5-40)
== END | disposition home or self-care (01) ==
LOC: BFHLAB 09:19
PROVIDERS: PCP Family Medicine; Referring Provider Family Medicine; Visit Provider Family Medicine
DX: Z00.00 Encounter for general adult medical examination without abnormal findings (principal); Z12.5 Encounter for screening for malignant neoplasm of prostate
CPT/HCPCS: 36415; 80053; 80061; 84153; 85025; G0103

== ENCOUNTER → 2025-04-15 | Outpatient (CLI) | payer OTHER, SELFPAY ==
--- OUTSIDE RECORDS SUMMARY | 2025-04-15 08:27 | XMS RPT_ITS | CCD ---
Author Organization [facility] Care Team Providers Care Warehouse Operations Associate Name Role Phone Dr. Judson Hayes Primary Care Provider [phone] Dr. Judson Hayes Referring Provider Dr. Gee Bullock Attending Provider Dr. Gee Bullock Other Provider [phone] Dr. Markos Oquendo Primary Care Provider Dr. Markos Oquendo Referring Provider [phone] Dr. Markos Oquendo Other Provider MARIAJOSE Robbins Attending Provider Markos Oquendo Referring Unavailable Markos Oquendo Attending Unavailable Markos Oquendo Primary Care Unavailable Medications Current Medications Medication Drug Class(es) Dates Sig (Normalized) Sig (Original) cholecalciferol 0.125 mg oral capsule (3 sources) Vitamin D Start: 11-06-2021 take 125 ug by mouth once daily Cholecalciferol (Vitamin D3) Active 125 MCG PO DAILY November 05, 2021 11:00pm finasteride 5 mg oral tablet (3 sources) 5-alpha Reductase Inhibitor Start: 08-31-2018 take 5 mg by mouth once daily Finasteride Active 5 MG PO DAILY August 31, 2018 12:00am Lactobacillus Combination No.9 (Adult 50 Plus Probiotic) 4 billion cell capsule (3 sources) Start: 11-06-2021 take 4 capsules by mouth once daily Lactobacillus Combination No.9 (Adult 50 Plus Probiotic) 4 billion cell capsule Active 4000 MMU CELLS PO DAILY November 06, 2021 9:56am administer with a meal Start: 11-06-2021 take 4 capsules by m outh once daily Lactobacillus Combination No.9 (Adult 50 Plus Probiotic) 4 billion cell capsule Active 4000 MMU CELLS PO DAILY November 05, 2021 11:00pm administer with a meal Sq-Xv-Pjius-Lutein-Herbal 29 3 (Alive Men's 50 Plus Multivit) 120 mcg-150 mcg -50 mg tablet,chewable (3 sources) Start: 11-06-2021 take 1 tablet by mouth once daily Xi-Pq-Tcydb-Lutein-Herbal 293 (Alive Men's 50 Plus Multivit) 120 mcg-150 mcg -50 mg tablet,chewable Active 1 TABLET PO DAILY November 06, 2021 9:55am Start: 11-06-2021 take 1 tablet by elizabeth th once daily Ht-Lx-Puniq-Lutein-Herbal 293 (Alive Men 's 50 Plus Multivit) 120 mcg-150 mcg -50 mg tablet,chewable Active 1 TABLET PO DAILY November 05, 2021 11:00pm tamsulosin hydrochloride 0.4 mg oral capsule (3 sources) alpha-Adrenergic Emma Start: 08-31-2018 take 0.4 mg by mouth at bedtime Tamsulosin Hcl Active 0.4 MG PO AT BEDTIME August 31, 2018 12:00am zinc gluconate 30 mg oral tablet (3 sources) Start: 11-06-2021 take 15 mg by mouth once daily Zinc Gluconate Active 15 MG PO DAILY November 05, 2021 11:00pm Completed/Discontinued Medications Medication Drug Class(es) Dates Sig (Normalized) Sig (Original) acetaminophen 325 mg / oxyCODONE hydrochloride 5 mg oral tablet (3 sources) Opioid Agonist Start: 11-19-2021 End: 12-02-2021 take 1 tablet by mouth every six hours Oxycodone-Acetamino phen (Percocet) 5-325 mg tablet Discontinued 1 TABLET PO EVERY 6 HOURS 10 5 November 19, 2021 December 02, 2021 7:48am Problems Problem Classification Problem Date Documented Da te Episodic/Chronic Abdominal hernia (4 sources) Right inguinal hernia ; Translations: [Unilateral inguinal hernia, without obstruction or gangrene, not specified as recurrent] Episodic Other non-traumatic joint disorders (2 sources) Pain in right shoulder; Translations: [Right shoulder pain] 04-29-2023 Episodic Other screening for suspected conditions (not mental disorders or infectious disease) (1 source) Encounter for screening for malignant neoplasm of prostate; Translations: [Encounter for screening for malignant neoplasm of prostate] Onset: 04-12-2025 Episodic Results Test Name Value Interpretation Reference Range Facility Absolute lymphocyte countOrd ered By: Markos Oquendo on 04-11-2023 Lymphocytes Auto (Unsp spec) [#/Vol] 1.03 10*3/uL 0.83-4.51 [facility] Basophil percentageOrdered B y: Markos Oquendo on 04-11-2023 Basophils/100 WBC (Bld) 0.5 % 0-1 [facility] Bilirubin [Mass/Vol] 0.70 mg/dL 0.20-1.00 [facility] Comment on above: For patients on eltr ombopag therapy, use of Dimension [place] TBIL is not recommended. Chloride [Moles/Vol] 106 mmol/L 98-107 [facility] Cholesterol [Mass/Vol] 158 mg/dL <200 [facility] Comment on above: <200 mg/dL Desirable 200-240 mg/dL Borderline >240 mg/dL High Risk Eosinophils/100 WBC (Bld) 2.2 % 0-5 [facility] Glucose [Mass/Vol] 88 mg/dL 74-106 [facility] Neutrophils (Bld) [#/Vol] 2.5 10*3/uL 2.0-7.7 [facility] Neutrophils/100 WBC (Bld) 60.6 % 47-70 [facility] Potassium [Moles/Vol] 4.7 mmol/L 3.5-5.1 [facility] Protein [Mass/Vol] 7.5 g/dL 6.4-8.2 [facility] Sodium [Moles/Vol] 139 mmol/L 136-145 [facility] Triglyceride [Mass/Vol] 232 mg/dL <199 [facility] Comment on above: The drugs N-Acetylcy steine and Metamizole may falsely depress this assay.Serum Triglycerides Reference Interval Normal <150 mg/dL Borderline high 150 - 199 mg/dL High 200 - 499 mg/dL Very High > or = 500 mg/dL WBC (Bld) [#/Vol] 4.2 10*3/uL 4.4-11.0 [facility] Blood erythrocytes count (nu mber/volume)Ordered By: Markos Oquendo on 04-11-2023 RBC (Bld) [#/Vol] 5.53 10*6/uL 4.6-6.2 [facility] Blood hemoglobin measurement (mass/volume)Ordered By: Markos Oquendo on 04-11-2023 Hemoglobin (Bld) [Mass/Vol] 16.8 g/dL 13.0-16.5 [facility] Blood lymphocytes/100 leukoc ytesOrdered By: Markos Oquendo on 04-11-2023 Lymphocytes/100 WBC (Bld) 24.7 % 19-41 [facility] Blood monocytes/100 leukocyt esOrdered By: Markos Oquendo on 04-11-2023 Monocytes/100 WBC (Bld) 11.8 % 0-10 [facility] Blood platelet mean volumeOr dered By: Markos Oquendo on 04-11-2023 Platelet mean volume (Bld) [Entitic vol] 9.2 fL 6.2-12.0 [facility] Determination of erythrocyte mean corpuscular volume (MCV)Ordered By: Markos Oquendo on 04-11-2023 MCV (RBC) [Entitic vol] 93.3 fL 80-94 [facility] Hematocrit Auto (Bld) [Volum e fraction]Ordered By: Markos Oquendo on 04-11-2023 Hematocrit (Bld) [Volume fraction] 51.6 % 40-54 [facility] Laboratory - Chemistry and C hemistry - challengeOrdered By: Markos Oquendo on 04-11-2023 ALP [Catalytic activity/Vol] 76 U/L 45-117 [facility] ALT [Catalytic activity/Vol] 36 U/L 16-61 [facility] CO2 [Moles/Vol] 28.0 mmol/L 21.0-32.0 [facility] Free T4 [Mass/Vol] 1.06 ng/dL 0.76-1.46 [facility] Globulin (S) [Mass/Vol] 3.6 g/dL 2.2-4.2 [facility] Urea nitrogen/Creatinine [Mass ratio] 15.0 mg/mg 10-20 [facility] Laboratory - Hematology and Cell countsOrdered By: Markos Oquendo on 04-11-2023 Erythrocyte distribution width (RBC) [Entitic vol] 45.0 fL 35.1-43.9 [facility] Erythrocyte distribution width (RBC) [Ratio] 13.0 % 11.6-14.6 [facility] Immature granulocytes/100 WBC (Bld) 0.200 % 0.0-0.9 [facility] Comment on above: IG% - Immature Granu locytes (promyelocytes, myelocytes and metamyelocytes) > 1% indicates that a LEFT SHIFT is Present. MCH (RBC) [Entitic mass] 30.4 pg 27.0-32.0 [facility] Nucleated RBC/100 WBC (Bld) [Ratio] 0 % 0-5 [facility] MCHC Auto (RBC) [Mass/Vol]Or dered By: Markos Oquendo on 04-11-2023 MCHC (RBC) [Mass/Vol] 32.6 g/dL 32-36 [facility] No Panel InformationOrdered By: Markos Oquendo on 04-11-2023 Estimated GFR (MDRD) Amer 90 mL/min >60 [facility] Comment on above: GFR Calc Estimated GFR (MDRD) Non-Af Amer 74 mL/min >60 [facility] Comment on above: Non- GFR Calc Prostate Specific Antigen Screen 0.93 ng/mL 0.00-4.00 [facility] Comment on above: This test was perfor med using the TPSA assay method for the[facility] chemistry system. Values obtained with differentassay methods cannot be used interchangably.When changing PSA assays in the course of monitoring apatient, additional sequential testing should be carriedout to confirm baseline values. Thyroid Stimulating Hormone (TSH) 1.84 uIU/mL 0.358-3.74 [facility] Platelets bldOrdered By: Ban Oquendo on 04-11-2023 Platelets (Bld) [#/Vol] 297 10*3/uL 150-450 [facility] Serum or plasma albumin ryann urement (mass/volume)Ordered By: Markos Oquendo on 04-11-2023 Albumin [Mass/Vol] 3.9 g/dL 3.2-5.0 [facility] Serum or plasma albumin/glob ulin mass ratioOrdered By: Markos Oquendo on 04-11-2023 Albumin/Globulin [Mass ratio] 1.1 {ratio} 0.9-2.4 [facility] Serum or plasma calcium ryann urement (mass/volume)Ordered By: Markos Oquendo on 04-11-2023 Calcium [Mass/Vol] 9.0 mg/dL 8.5-10.1 [facility] Serum or plasma cholesterol in HDL measurement (mass/volume)Ordered By: Markos Oquendo on 04-11-2023 Cholesterol in HDL [Mass/Vol] 30 mg/dL >40 [facility] Comment on above: The drugs N-Acetylcy steine and Metamizole may falsely depress this assay. Reference Range HDL <40 mg/dL Low HDL Cholesterol HDL >or= 60 mg/dL High HDL Cholesterol Serum or plasma cholesterol in VLDL measurement (mass/volume)Ordered By: Markos Oquendo on 04-11-2023 Cholesterol in VLDL [Mass/Vol] 46 mg/dL 5-40 [facility] Serum or plasma creatinine m easurement (mass/volume)Ordered By: Markos Oquendo on 04-11-2023 Creatinine [Mass/Vol] 1.07 mg/dL 0.70-1.30 [facility] Comment on above: The validity of the calculated GFR & GFRAA in patients over 70 years has not been determined. Clinical correlation is essential. Serum or plasma low density lipoprotein (LDL) cholesterol measurement (mass/volume)Ordered By: Markos Oquendo on 04-11-2023 Cholesterol in LDL [Mass/Vol] 82 mg/dL 0-130 [facility] Serum or plasma urea nitroge n measurement (mass/volume)Ordered By: Markos Oquendo on 04-11-2023 Urea nitrogen [Mass/Vol] 16 mg/dL 7-18 [facility] Thin prep Papanicolaou smear with manual screeningOrdered By: Markos Oquendo on 04-11-2023 Thin prep Papanicolaou smear with manual screening 23 U/L 15-37 [facility] Thin prep Papanicolaou smear with manual screening 5 5-15 [facility] Basophil percentageon 2021 Chloride [Moles/Vol] 106 mmol/L 98-107 [facility] Work Phone: Cholesterol [Mass/Vol] 181 mg/dL <200 [facility] Work Phone: Comment on above: <200 mg/dL Desirable 200-240 mg/dL Borderline >240 mg/dL High Risk Glucose [Mass/Vol] 86 mg/dL 74-106 [facility] Work Phone: Potassium [Moles/Vol] 4.5 mmol/L 3.5-5.1 [facility] Work Phone: Sodium [Moles/Vol] 139 mmol/L 136-145 [facility] Work Phone: Triglyceride [Mass/Vol] 154 mg/dL <199 [facility] Work Phone: Comment on above: The drugs N-Acetylcy steine and Metamizole may falsely depress this assay.Serum Triglycerides Reference Interval Normal <150 mg/dL Borderline high 150 - 199 mg/dL High 200 - 499 mg/dL Very High > or = 500 mg/dL Laboratory - Chemistry and C hemistry - challengeon 05-04-2022 CO2 [Moles/Vol] 26.0 mmol/L 21.0-32.0 [facility] Work Phone: Urea nitrogen/Creatinine [Mass ratio] 18.6 mg/mg 10-20 [facility] Work Phone: No Panel Informationon 05-04 Estimated GFR (MDRD) Amer 95 mL/min >60 [facility] Work Phone: Comment on above: GFR Calc Estimated GFR (MDRD) Non-Af Amer 79 mL/min >60 [facility] Work Phone: Comment on above: Non- GFR Calc Prostate Specific Antigen Screen 0.88 ng/mL 0.00-4.00 [facility] Work Phone: Comment on above: This test was perfor med using the TPSA assay method for the[facility] chemistry system. Values obtained with differentassay methods cannot be used interchangably.When changing PSA assays in the course of monitoring apatient, additional sequential testing should be carriedout to confirm baseline values. Serum or plasma calcium ryann urement (mass/volume)on 05-04-2022 Calcium [Mass/Vol] 9.2 mg/dL 8.5-10.1 [facility] Work Phone: Serum or plasma cholesterol in HDL measurement (mass/volume)on 05-04-2022 Cholesterol in HDL [Mass/Vol] 38 mg/dL >40 [facility] Work Phone: Comment on above: The drugs N-Acetylcy steine and Metamizole may falsely depress this assay. Reference Range HDL <40 mg/dL Low HDL Cholesterol HDL >or= 60 mg/dL High HDL Cholesterol Serum or plasma cholesterol in VLDL measurement (mass/volume)on 05-04-2022 Cholesterol in VLDL [Mass/Vol] 31 mg/dL 5-40 [facility] Work Phone: Serum or plasma creatinine m easurement (mass/volume)on 05-04-2022 Creatinine [Mass/Vol] 1.02 mg/dL 0.70-1.30 [facility] Work Phone: Comment on above: The validity of the calculated GFR & GFRAA in patients over 70 years has not been determined. Clinical correlation is essential. Serum or plasma low density lipoprotein (LDL) cholesterol measurement (mass/volume)on 05-04-2022 Cholesterol in LDL [Mass/Vol] 112 mg/dL 0-130 [facility] Work Phone: Serum or plasma urea nitroge n measurement (mass/volume)on 05-04-2022 Urea nitrogen [Mass/Vol] 19 mg/dL 7-18 [facility] Work Phone: Thin prep Papanicolaou smear with manual screeningon 05-04-2022 Thin prep Papanicolaou smear with manual screening 7 5-15 [facility] Work Phone: Vital Signs Date Time Vital Sign Value Performing Clinician Vidhi cleary 11-19-2021 12:01-0400 Body temperature 97.9 [degF] Dr. Judson Hayes Work Phone: [facility] Work Phone: 11-19-2021 12:01-0400 Diastolic blood pressure 82 mm[Hg] Dr. Judson Hayes Work Phone: [facility] Work Phone: 11-19-2021 12:01-0400 Heart rate 69 /min Dr. Judson Hayes Work Phone: [facility] Work Phone: 11-19-2021 12:01-0400 Respiratory rate 16 /min Dr. Judson Hayes Work Phone: [facility] Work Phone: 11-19-2021 12:01-0400 SaO2% (BldA) [Mass fraction] 98 % Dr. Judson Hayes Work Phone: [facility] Work Phone: 11-19-2021 12:01-0400 Systolic blood pressure 132 mm[Hg] Dr. Judson Hayes Work Phone: [facility] Work Phone: 11-19-2021 08:17-0400 Body height 170.[address] Judson Hayes Work Phone: [facility] Work Phone: 11-19-2021 08:17-0400 Body mass index (BMI) [Ratio] 24.7 kg/m2 Dr. Judson Hayes Work Phone: [facility] Work Phone: 11-19-2021 08:17-0400 Body weight 71.[address] Judson Hayes Work Phone: [facility] Work Phone: 11-06-2021 09:53-0400 Body mass index (BMI) [Ratio] 25.3 kg/m2 Dr. Judson Hayes Work Phone: [facility] Work Phone: 11-06-2021 09:53-0400 Body temperature 97.4 [degF] Dr. Judson Hayes Work Phone: [facility] Work Phone: 11-06-2021 09:53-0400 Body weight 73.[address] Judson Hayes Work Phone: [facility] Work Phone: 11-06-2021 09:53-0400 Diastolic blood pressure 88 mm[Hg] Dr. Judson Hayes Work Phone: [facility] Work Phone: 11-06-2021 09:53-0400 Heart rate 78 /min Dr. Judson Hayes Work Phone: [facility] Work Phone: 11-06-2021 09:53-0400 Respiratory rate 18 /min Dr. Judson Hayes Work Phone: [facility] Work Phone: 11-06-2021 09:53-0400 SaO2% (BldA) [Mass fraction] 99 % Dr. Judson Hayes Work Phone: [facility] Work Phone: 11-06-2021 09:53-0400 Systolic blood pressure 153 mm[Hg] Dr. Judson Hayes Work Phone: [facility] Work Phone: Encounters Encounter Date Encounter Type Care Provider Facility Start: 04-12-2025 Encounter for genera l adult medical examination without abnormal findings [facility] Start: 04-12-2025 ambulatory [facility] Facility: [facility] Start: 04-29-2023 Non-patient / Non-visit Dr. Kingston Oquendo Work Phone: [facility] Start: 04-29-2023 End: 04-29-[address] Markos Oquendo Work Phone: [facility] Work Phone: Start: 04-29-2023 End: 04-29-[address] Markos Oquendo Work Phone: [facility], [facility] Work Phone: Start: 04-11-2023 End: 04-11-[address] [facility] Start: 05-04-2022 End: 05-04-2022 ambulatory [facility] Work Phone: Start: 05-04-2022 End: 05-04-2022 [facility] Start: 11-19-2021 Non-patient / Non-visit Dr. Tracy Hayes Work Phone: [facility] Start: 11-19-2021 End: 11-19-2021 Admission to same day surgery center Dr[facility] Judson [facility] Start: 11-06-2021 End: 11-06-[address] Judson Hayes Work Phone: [facility] Procedures Date Procedure Procedure Detail Performing Clinician Start: 04-29-2023 X-ray of eye for for eign body Dr. Markos Oquendo Work Phone: Start: 04-29-2023 MRI arthrography of shoulder Dr. Markos Oquendo Work Phone: Start: 04-29-2023 Plain X-ray of shoulder Dr. Markos Oquendo Work Phone: Start: 04-29-2023 MRI of joint of uppe r extremity Dr. Markos Oquendo Work Phone: Start: 11-19-2021 Lap Robotic Inguinal Hernia (Right) Dr. Judson Hayes Work Phone: Plan of Treatment Date Care Activity Detail Author Patient referral [facility] Work Phone: Payers Date Payer Category Payer Self-pay [id number] 2021 Private Health Insurance [id number] Unknown [id number] Unknown [id number] Social History Date Type Detail Facility Start: 11-12-2021 End: 11-12-2021 Tobacco smoking status MAIS Unknown if ever smoked [facility] Start: 1960 Sex Assigned At Male [facility] Medical Equipment Procedure Code Equipment Code Equipment Origin al Text Equipment Identifier Dates MESH,PRO CAPTAIN ROOM SERVICE [id number] FDA Start: 11-19-2021 MESH,PRO CAPTAIN ROOM SERVICE [id number] FDA Start: 11-19-2021 Functional Status Date Assessment Result Facility 11-19-2021 Functional status Ambulates [facility] Work Phone: Mental Status Date Assessment Result Facility 11-19-2021 Cognitive function Voice/Name [facility] Work Phone: Procedure note 04-29-2023 Note Date & Type Note Facility 04-29-2023 Procedure note [facility] Evaluation note Note Date & Type Note Facility Evaluation note Diagnosis Onset Date Right inguinal hernia acute [facility] Work Phone: Evaluation note Note Date & Type Note Facility Evaluation note No assessment information availa ble [facility] Work Phone: Evaluation note Note Date & Type Note Facility Evaluation note Diagnosis Onset Date Right shoulder pain acute [facility] Work Phone: Chief Complaint and Reason for Visit Chief Complaint Hernia LAP ROBOTIC INGUINAL HERNIA W MESH, POSS BILATERAL LAP ROBOTIC INGUINAL HERNIA W MESH, POSS BILATERAL Reason for Visit Right inguinal herni a Chief Complaint RIGHT SHOULDER PAIN RIGHT SHOULDER PAIN Reason for Visit Right shoulder pain Family History No Family History Records Found Relationship Condition Age at Onset Recorded Date/T meggan sister Asthma Unknown Malignant neoplasm of breast Unknown mother Arthritis Unknown Hypertension Unknown Osteoporosis Unknown Cerebrovascular accident (CVA) Unknown father Malignant neoplasm Unknown Cardiac disease Unknown Advance Directives No Advanced Directives Records Found Advance Directive Response Recorded Date/ Time Living Will Yes November 12, 2021 8 :07am Power of Claims Administrator Yes November 12, 2021 8:07am Advance Directive Response Recorded Date/ Time Living Will Yes November 12, 2021 7 :07am Power of Claims Administrator Yes November 12, 2021 7:07am Summary Purpose Additional Source Comments Goals (unrecognized section and content) Goals may be documented in a n alternate sectionGoals may be documented in an alternate sectionGoals may be documented in an alternate section Care Teams (unrecognized sec tion and content) Team Status: Active Member Role Status Dates Dr. Judson Hayes MD Family Provider Active Dr. Markos Oquendo , DO Primary Care Provider Active Team Status: Active Member Role Status Dates Dr. Markos Oquendo , DO Primary Care Prov ider, Referring Provider, Other Provider Active Valerie Robbisn , GRANT-C Attending Provider Active Team Status: Inactive Member Role Status Dates Dr. Markos Oquendo , DO Primary Care Prov ider, Attending Provider, Referring Provider Active (unrecognized sect ion and content) No Status Records Found INFORMATION SOURCE (unrecogn ized section and content) DATE CREATED AUTHOR 04/14/2025 [facility] FOR RECORDS PERTAINING TO PATIENTS WHO ARE OR HAVE BEEN ENROLLED IN A CHEMICAL DEPENDENCY/SUBSTANCEABUSE PROGRAM, SOME INFORMATION MAY BE OMITTED. This clinical summary was aggregated from multiple sources. Caution should be exercised in using it in the provision of clinical care. This summary normalizes information from multiple sources, and as a consequence, information in this document may materially change the coding, format and clinical context of patient data. In addition, data may be omitted in some cases. CLINICAL DECISIONS SHOULD BE BASED ON THE PRIMARY CLINICAL RECORDS. [email or web address] [facility]. provides no warranty or guarantee of the accuracy or completeness of information in this document.
--- OUTSIDE RECORDS SUMMARY | 2025-04-15 08:27 | XMS RPT_ITS | CCD ---
Author Organization [facility] Care Team Providers Care Ell Teacher Name Role Phone Dr. Judson Hayes Primary Care Provider Dr. Judson Hayes Referring Provider Dr. Gee Bullock Attending Provider [phone] Dr. Gee Bullock Other Provider [phone] Dr. Markos Oquendo Primary Care Provider Dr. Markos Oquendo Referring Provider Dr. Markos Oquendo Other Provider MARIAJOSE Robbins [...] 05, 2021 11:00pm administer with a meal Fh-Qy-Xiywl-Lutein-Herbal 29 3 (Alive Men's 50 Plus Multivit) 120 mcg-150 mcg -50 mg tablet,chewable (3 sources) Start: 11-06-2021 take 1 tablet by mouth once daily Ci-Xa-Vnvpt-Lutein-Herbal 293 (Alive Men's 50 Plus Multivit) 120 mcg-150 mcg -50 mg tablet,chewable Active 1 TABLET PO DAILY November 06, 2021 9:55am Start: 11-06-2021 take 1 tablet by elizabeth th once daily Mp-Ky-Jtkkk-Lutein-Herbal 293 (Alive Men 's 50 Plus Multivit) [...] Auto (Unsp spec) [#/Vol] 1.03 10*3/uL 0.83-4.51 [facility] Basophil percentageOrdered B y: Markos Oquendo on 04-11-2023 Basophils/100 WBC (Bld) 0.5 % 0-1 [facility] Bilirubin [Mass/Vol] 0.70 mg/dL 0.20-1.00 [facility] Comment on above: For patients on eltr ombopag therapy, use of Dimension [place] TBIL is not recommended. Chloride [Moles/Vol] 106 mmol/L 98-107 [facility] Cholesterol [Mass/Vol] 158 mg/dL <200 [facility] Comment on above: <200 mg/dL Desirable 200-240 mg/dL Borderline >240 mg/dL High Risk Eosinophils/100 WBC (Bld) 2.2 % 0-5 [facility] Glucose [Mass/Vol] 88 mg/dL 74-106 [facility] Neutrophils (Bld) [#/Vol] 2.5 10*3/uL 2.0-7.7 [facility] Neutrophils/100 WBC (Bld) 60.6 % 47-70 [facility] Potassium [Moles/Vol] 4.7 mmol/L 3.5-5.1 [facility] Protein [Mass/Vol] 7.5 g/dL 6.4-8.2 [facility] Sodium [Moles/Vol] 139 mmol/L 136-145 [facility] Triglyceride [Mass/Vol] 232 mg/dL <199 [facility] Comment on above: The drugs N-Acetylcy steine and Metamizole may falsely depress this assay.Serum Triglycerides Reference Interval Normal <150 mg/dL Borderline high 150 - 199 mg/dL High 200 - 499 mg/dL Very High > or = 500 mg/dL WBC (Bld) [#/Vol] 4.2 10*3/uL 4.4-11.0 [facility] Blood erythrocytes count (nu mber/volume)Ordered By: Markos Oquendo on 04-11-2023 RBC (Bld) [#/Vol] 5.53 10*6/uL 4.6-6.2 [facility] Blood hemoglobin measurement (mass/volume)Ordered By: Markos Oquendo on 04-11-2023 Hemoglobin (Bld) [Mass/Vol] 16.8 g/dL 13.0-16.5 [facility] Blood lymphocytes/100 leukoc ytesOrdered By: Markos Oquendo on 04-11-2023 Lymphocytes/100 WBC (Bld) 24.7 % 19-41 [facility] Blood monocytes/100 leukocyt esOrdered By: Markos Oquendo on 04-11-2023 Monocytes/100 WBC (Bld) 11.8 % 0-10 [facility] Blood platelet mean volumeOr dered By: Markos Oquendo on 04-11-2023 Platelet mean volume (Bld) [Entitic vol] 9.2 fL 6.2-12.0 [facility] Determination of erythrocyte mean corpuscular volume (MCV)Ordered By: Markos Oquendo on 04-11-2023 MCV (RBC) [Entitic vol] 93.3 fL 80-94 [facility] Hematocrit Auto (Bld) [Volum e fraction]Ordered By: Markos Oquendo on 04-11-2023 Hematocrit (Bld) [Volume fraction] 51.6 % 40-54 [facility] Laboratory - Chemistry and C hemistry - challengeOrdered By: Markos Oquendo on 04-11-2023 ALP [Catalytic activity/Vol] 76 U/L 45-117 [facility] ALT [Catalytic activity/Vol] 36 U/L 16-61 [facility] CO2 [Moles/Vol] 28.0 mmol/L 21.0-32.0 [facility] Free T4 [Mass/Vol] 1.06 ng/dL 0.76-1.46 [facility] Globulin (S) [Mass/Vol] 3.6 g/dL 2.2-4.2 [facility] Urea nitrogen/Creatinine [Mass ratio] 15.0 mg/mg 10-20 [facility] Laboratory - Hematology and Cell countsOrdered By: Markos Oquendo on 04-11-2023 Erythrocyte distribution width (RBC) [Entitic vol] 45.0 fL 35.1-43.9 [facility] Erythrocyte distribution width (RBC) [Ratio] 13.0 % 11.6-14.6 [facility] Immature granulocytes/100 WBC (Bld) 0.200 % 0.0-0.9 [facility] Comment on above: IG% - Immature Granu locytes (promyelocytes, myelocytes and metamyelocytes) > 1% indicates that a LEFT SHIFT is Present. MCH (RBC) [Entitic mass] 30.4 pg 27.0-32.0 [facility] Nucleated RBC/100 WBC (Bld) [Ratio] 0 % 0-5 [facility] MCHC Auto (RBC) [Mass/Vol]Or dered By: Markos Oquendo on 04-11-2023 MCHC (RBC) [Mass/Vol] 32.6 g/dL 32-36 [facility] No Panel InformationOrdered By: Markos Oquendo on 04-11-2023 Estimated GFR (MDRD) Amer 90 mL/min >60 [facility] Comment on above: GFR Calc Estimated GFR (MDRD) Non-Af Amer 74 mL/min >60 [facility] Comment on above: Non- GFR Calc Prostate Specific Antigen Screen 0.93 ng/mL 0.00-4.00 [facility] Comment on above: This test was perfor med using the TPSA assay method for the[facility] chemistry system. Values obtained with differentassay methods cannot be used interchangably.When changing PSA assays in the course of monitoring apatient, additional sequential testing should be carriedout to confirm baseline values. Thyroid Stimulating Hormone (TSH) 1.84 uIU/mL 0.358-3.74 [facility] Platelets bldOrdered By: Ban Oquendo on 04-11-2023 Platelets (Bld) [#/Vol] 297 10*3/uL 150-450 [facility] Serum or plasma albumin ryann urement (mass/volume)Ordered By: Markos Oquendo on 04-11-2023 Albumin [Mass/Vol] 3.9 g/dL 3.2-5.0 [facility] Serum or plasma albumin/glob ulin mass ratioOrdered By: Markos Oquendo on 04-11-2023 Albumin/Globulin [Mass ratio] 1.1 {ratio} 0.9-2.4 [facility] Serum or plasma calcium ryann urement (mass/volume)Ordered By: Markos Oquendo on 04-11-2023 Calcium [Mass/Vol] 9.0 mg/dL 8.5-10.1 [facility] Serum or plasma cholesterol in HDL measurement (mass/volume)Ordered By: Markos Oquendo on 04-11-2023 Cholesterol in HDL [Mass/Vol] 30 mg/dL >40 [facility] Comment on above: The drugs N-Acetylcy steine and Metamizole may falsely depress this assay. Reference Range HDL <40 mg/dL Low HDL Cholesterol HDL >or= 60 mg/dL High HDL Cholesterol Serum or plasma cholesterol in VLDL measurement (mass/volume)Ordered By: Markos Oquendo on 04-11-2023 Cholesterol in VLDL [Mass/Vol] 46 mg/dL 5-40 [facility] Serum or plasma creatinine m easurement (mass/volume)Ordered By: Markos Oquendo on 04-11-2023 Creatinine [Mass/Vol] 1.07 mg/dL 0.70-1.30 [facility] Comment on above: The validity of the calculated GFR & GFRAA in patients over 70 years has not been determined. Clinical correlation is essential. Serum or plasma low density lipoprotein (LDL) cholesterol measurement (mass/volume)Ordered By: Markos Oquendo on 04-11-2023 Cholesterol in LDL [Mass/Vol] 82 mg/dL 0-130 [facility] Serum or plasma urea nitroge n measurement (mass/volume)Ordered By: Markos Oquendo on 04-11-2023 Urea nitrogen [Mass/Vol] 16 mg/dL 7-18 [facility] Thin prep Papanicolaou smear with manual screeningOrdered By: Markos Oquendo on 04-11-2023 Thin prep Papanicolaou smear with manual screening 23 U/L 15-37 [facility] Thin prep Papanicolaou smear with manual screening 5 5-15 [facility] Basophil percentageon 2021 Chloride [Moles/Vol] 106 mmol/L 98-107 [facility] Work Phone: Cholesterol [Mass/Vol] 181 mg/dL <200 [facility] Work Phone: Comment on above: <200 mg/dL Desirable 200-240 mg/dL Borderline >240 mg/dL High Risk Glucose [Mass/Vol] 86 mg/dL 74-106 [facility] Work Phone: Potassium [Moles/Vol] 4.5 mmol/L 3.5-5.1 [facility] Work Phone: Sodium [Moles/Vol] 139 mmol/L 136-145 [facility] Work Phone: Triglyceride [Mass/Vol] 154 mg/dL <199 [facility] Work Phone: Comment on above: The drugs N-Acetylcy steine and Metamizole may falsely depress this assay.Serum Triglycerides Reference Interval Normal <150 mg/dL Borderline high 150 - 199 mg/dL High 200 - 499 mg/dL Very High > or = 500 mg/dL Laboratory - Chemistry and C hemistry - challengeon 05-04-2022 CO2 [Moles/Vol] 26.0 mmol/L 21.0-32.0 [facility] Work Phone: Urea nitrogen/Creatinine [Mass ratio] 18.6 mg/mg 10-20 [facility] Work Phone: No Panel Informationon 05-04 Estimated GFR (MDRD) Amer 95 mL/min >60 [facility] Work Phone: Comment on above: GFR Calc Estimated GFR (MDRD) Non-Af Amer 79 mL/min >60 [facility] Work Phone: Comment on above: Non- GFR Calc Prostate Specific Antigen Screen 0.88 ng/mL 0.00-4.00 [facility] Work Phone: Comment on above: This test was perfor med using the TPSA assay method [facility]. Values obtained with differentassay methods cannot be used interchangably.When changing PSA assays in the course of monitoring apatient, additional sequential testing should be carriedout to confirm baseline values. Serum or plasma calcium ryann urement (mass/volume)on 05-04-2022 Calcium [Mass/Vol] 9.2 mg/dL 8.5-10.1 [facility] Work Phone: Serum or plasma cholesterol in HDL measurement (mass/volume)on 05-04-2022 Cholesterol in HDL [Mass/Vol] 38 mg/dL >40 [facility] Work Phone: Comment on above: The drugs N-Acetylcy steine and Metamizole may falsely depress this assay. Reference Range HDL <40 mg/dL Low HDL Cholesterol HDL >or= 60 mg/dL High HDL Cholesterol Serum or plasma cholesterol in VLDL measurement (mass/volume)on 05-04-2022 Cholesterol in VLDL [Mass/Vol] 31 mg/dL 5-40 [facility] Work Phone: Serum or plasma creatinine m easurement (mass/volume)on 05-04-2022 Creatinine [Mass/Vol] 1.02 mg/dL 0.70-1.30 [facility] Work Phone: Comment on above: The validity of the calculated GFR & GFRAA in patients over 70 years has not been determined. Clinical correlation is essential. Serum or plasma low density lipoprotein (LDL) cholesterol measurement (mass/volume)on 05-04-2022 Cholesterol in LDL [Mass/Vol] 112 mg/dL 0-130 [facility] Work Phone: Serum or plasma urea nitroge n measurement (mass/volume)on 05-04-2022 Urea nitrogen [Mass/Vol] 19 mg/dL 7-18 [facility] Work Phone: Thin prep Papanicolaou smear with manual screeningon 05-04-2022 Thin prep Papanicolaou smear with manual screening 7 5-15 [facility] Work Phone: Vital Signs Date Time Vital Sign Value Performing Clinician Vidhi cleary 11-19-2021 12:01-0400 Body temperature 97.9 [degF] Dr. Judson Hayes Work Phone: [facility] Work Phone: 11-19-2021 12:01-0400 Diastolic blood pressure 82 mm[Hg] Dr. Judson Hayes Work Phone: [facility] Work Phone: 11-19-2021 12:01-0400 Heart rate 69 /min Dr. Judson Hayes Work Phone: [facility] Work Phone: 11-19-2021 12:01-0400 Respiratory rate 16 /min Dr. Judson Hayes Work Phone: [facility] Work Phone: 11-19-2021 12:01-0400 SaO2% (BldA) [Mass fraction] 98 % Dr. Judson Hayes Work Phone: [facility] Work Phone: 11-19-2021 12:01-0400 Systolic blood pressure 132 mm[Hg] Dr. Judson Hayes Work Phone: [facility] Work Phone: 11-19-2021 08:17-0400 Body height 170.[address] Judson Hayes Work Phone: [facility] Work Phone: 11-19-2021 08:17-0400 Body mass index (BMI) [Ratio] 24.7 kg/m2 Dr. Judson Hayes Work Phone: [facility] Work Phone: 11-19-2021 08:17-0400 Body weight 71.[address] Judson Hayes Work Phone: [facility] Work Phone: 11-06-2021 09:53-0400 Body mass index (BMI) [Ratio] 25.3 kg/m2 Dr. Judson Hayes Work Phone: [facility] Work Phone: 11-06-2021 09:53-0400 Body temperature 97.4 [degF] Dr. Judson Hayes Work Phone: [facility] Work Phone: 11-06-2021 09:53-0400 Body weight 73.[address] Judson Hayes Work Phone: [facility] Work Phone: 11-06-2021 09:53-0400 Diastolic blood pressure 88 mm[Hg] Dr. Judson Hayes Work Phone: [facility] Work Phone: 11-06-2021 09:53-0400 Heart rate 78 /min Dr. Judson Hayes Work Phone: [facility] Work Phone: 11-06-2021 09:53-0400 Respiratory rate 18 /min Dr. Judson Hayes Work Phone: [facility] Work Phone: 11-06-2021 09:53-0400 SaO2% (BldA) [Mass fraction] 99 % Dr. Judson Hayes Work Phone: [facility] Work Phone: 11-06-2021 09:53-0400 Systolic blood pressure 153 mm[Hg] Dr. Judson Hayes Work Phone: [facility] Work Phone: Encounters Encounter Date Encounter Type Care Provider Facility Start: 04-12-2025 Encounter for genera l adult medical examination without abnormal findings [facility] Start: 04-12-2025 ambulatory [facility] Facility: [facility] Start: 04-29-2023 Non-patient / Non-visit Dr. Kingston Oquendo Work Phone: [facility] Start: 04-29-2023 End: 04-29-[address] Markos Oquendo Work Phone: [facility] Work Phone: Start: 04-29-2023 End: 04-29-[address] Markos Oquendo Work Phone: [facility], [facility] Work Phone: Start: 04-11-2023 End: 04-11-[address] [facility] Start: 05-04-2022 End: 05-04-2022 ambulatory [facility] Work Phone: Start: 05-04-2022 End: 05-04-2022 [facility] Start: 11-19-2021 Non-patient / Non-visit Dr. Tracy Hayes Work Phone: [facility] Start: 11-19-2021 End: 11-19-2021 Admission to same day surgery center [facility] Jud[facility] Start: 11-06-2021 End: 11-06-[address] Judson Hayes Work Phone: [facility] Procedures Date Procedure [...] Date Care Activity Detail Author Patient referral [facility] Work Phone: Payers Date Payer Category Payer Self-pay [id number] 2021 Private Health Insurance [id number] Unknown [id number] Social History Date Type Detail Facility Start: 11-12-2021 End: 11-12-2021 Tobacco smoking status NEIS Unknown if ever smoked [facility] Start: 1960 Sex Assigned At Male [facility] Medical Equipment Procedure Code Equipment Code Equipment Origin al Text Equipment Identifier Dates MESH,PRO VP EMERGING MEDIA [id number] FDA Start: 11-19-2021 MESH,PRO VP EMERGING MEDIA [id number] FDA Start: 11-19-2021 Functional Status Date Assessment Result Facility 11-19-2021 Functional status Ambulates [facility] Work Phone: Mental Status Date Assessment Result Facility 11-19-2021 Cognitive function Voice/Name [facility] Work Phone: Procedure note 04-29-2023 Note Date & Type Note Facility 04-29-2023 Procedure note [facility] Evaluation note Note Date & Type Note Facility Evaluation note Diagnosis Onset Date Right inguinal hernia acute [facility] Work Phone: Evaluation note Note Date & Type Note Facility Evaluation note No assessment information availa ble [facility] Work Phone: Evaluation note Note Date & Type Note Facility Evaluation note Diagnosis Onset Date Right shoulder pain acute [facility] Work Phone: Chief Complaint and [...] November 12, 2021 8 :07am Power of Code Enforcement Inspector Yes November 12, 2021 8:07am Advance Directive Response Recorded Date/ Time Living Will Yes November 12, 2021 7 :07am Power of Code Enforcement Inspector Yes November 12, 2021 7:07am Summary Purpose [...] ider, Referring Provider, Other Provider Active Valerie Robbins , GRANT-C Attending Provider Active Team Status: Inactive Member Role Status Dates Dr. Markos Oquendo , DO Primary Care Prov ider, Attending Provider, Referring Provider Active (unrecognized sect ion and content) No Status Records Found INFORMATION SOURCE (unrecogn ized section and content) DATE CREATED AUTHOR 04/14/2025 [facility] FOR RECORDS PERTAINING TO PATIENTS WHO [...] BE BASED ON THE PRIMARY CLINICAL RECORDS. [employer] [facility]. provides no warranty or guarantee of the accuracy or completeness of information in this document.
[2025-04-15 10:34] LABS: Hematocrit 49.9 % (40-54); Hemoglobin 17.0 g/dL (13.0-16.5); Immature Granulocytes Count 0.010 X10^3/uL (0.0-0.0); Mean Corp Hgb Conc 34.1 g/dL (32-36); Mean Corpuscular Volume 89.9 fL (80-94); Mean Platelet Vol. 9.2 fl (6.2-12.0); NRBC Flagged by Analyzer 0 % (0-5); Platelet Count 316 K/mm3 (150-450); RBC Distribution Width CV 12.9 % (11.6-14.6); RBC Distribution Width SD 42.7 fl (35.1-43.9); Red Blood Count 5.55 M/mm3 (4.6-6.2); White Blood Count 5.4 K/mm3 (4.4-11.0)
[2025-04-15 10:58] LABS: AST(SGOT) 26 U/L (<=37); Alanine Aminotransfer ALT/SGPT 30 U/L (<=46); Albumin, Serum 4.6 g/dL (3.4-4.8); Alkaline Phosphatase 84 U/L (40-129); Anion Gap 10 (5-15); BUN 17 mg/dL (4-19); BUN/Creat Ratio 16.7 RATIO (10-20); Calcium,Total 9.6 mg/dL (7.6-11.0); Carbon Dioxide 25.5 mmol/L (21.0-32.0); Chloride 105 mmol/L (98-108); Cholesterol 177 mg/dL (<=200); Globulin 2.5 g/dL (2.2-4.2); Glucose 87 mg/dL (70-99); Low Density Lipoprotein Calc. 114 mg/dL; PSA,Total - Annual Screen 0.88 ng/mL (0.02-4.00); Potassium 4.3 mmol/L (3.3-5.1); Triglycerides 134 mg/dL; Very Low Density Lipoprotein 27 mg/dL (5-40); cholesterol:hdl ratio screen 4.52
== END | disposition home or self-care (01) ==
LOC: MTLAB 08:06
PROVIDERS: PCP Family Medicine; Referring Provider Family Medicine; Visit Provider Family Medicine
DX: Z00.00 Encounter for general adult medical examination without abnormal findings (principal); Z12.5 Encounter for screening for malignant neoplasm of prostate
CPT/HCPCS: 36415; 80053; 80061; 84153; 85025; G0103